=== PATIENT | male | born 1950 | race Caucasian/White ===

== ENCOUNTER 2019-12-22 10:22 | Outpatient (CLI) | payer BC, SELFPAY ==
--- NOTE | 2019-12-22 | US_ITS ---
WS: [id number] ULTRASOUND CAROTID INDICATION: Carotid bruit TECHNIQUE: Ultrasound examination both carotid arteries with Doppler. FINDINGS: RIGHT: Right common carotid artery is patent. Mild intimal hyperplasia. Mild calcified atheromatous d isease right ICA. Less than 50% ICA stenosis. Right ECA is patent. LEFT: Left common carotid artery is patent. Mild intimal hyperplasia left common carotid artery. Less than 50% stenosis left ICA. Mild calcified atheromatous plaque left proximal ICA. Left ECA is patent . Antegrade flow both vertebral arteries. US/ROR carotid duplex BI IMPRESSION: Less than 50% ICA stenosis bilaterally.
== END 2019-12-22 10:23 | disposition home or self-care (01) ==
LOC: RADOUTREAD 11:55
PROVIDERS: Family Provider Family Medicine; PCP Family Medicine; Visit Provider Family Medicine
DX: Z76.89 Persons encountering health services in other specified circumstances (principal)

== ENCOUNTER 2020-12-06 17:20 | Emergency (ER) | payer BC, SELFPAY ==
[2020-12-06 17:37] VITALS: BP 115/77; PULSE 94; RESP 18; TEMP 37.3; O2SAT 96; BMI 23.0
[2020-12-06 20:21] VITALS: BP 140/77; PULSE 83; RESP 17; O2SAT 97
--- NOTE | 2020-12-06 20:21 | CTR_ITS ---
PROCEDURE INFORMATION: Exam: CT Angiography Chest With Contrast Exam date and time: 12/06/2020 11:11 PM Age: 70 years old Clinical indication: Dyspnea; Additional info: R/O pe TECHNIQUE: Imaging protocol: Computed tomographic angiography of the chest with contrast. 3D rendering (Not supervised by radiologist): MIP and/or 3D reconstructed images were created by the technologist. Total images: 936 Radiation optimization: All CT scans at this facility use at least one of these dose optimization techniques: automated exposure control; mA and/or kV adjustment per patient size (includes targeted exams where dose is matched to clinical indication); or iterative reconstruction. Contrast material: OMNI 350; Contrast volume: 95 ml; Contrast route: INTRAVENOUS (IV); COMPARISON: No relevant prior studies available. RADIATION DOSE METRICS: Total DLP (mGy-cm): 615.59 FINDINGS: Pulmonary arteries: No visible evidence of pulmonary embolism/pulmonary arterial thrombus. Aorta: The thoracic aorta is nonaneurysmal. No visible intimal flap or dissection. Mild arterial sclerotic disease. Lungs: Patchy, predominantly peripheral, ground-glass interstitial lung disease opacification as well as evidence of early consolidation in the posterior basal segments of the bilateral lower lobes consistent with active pneumonitis/pneumonia. Consideration might be given to Covid-19 pneumonitis/pneumonia. Rare bullous/bleb. Evidence of mild COPD/chronic bronchitis. Evidence of antecedent granulomatous disease. Pleural spaces: Unremarkable. No pneumothorax. No pleural effusion. Heart: Unremarkable. No cardiomegaly. No pericardial effusion. No visible coronary artery disease. Lymph nodes: Moderately prominent mediastinal and hilar lymph nodes believed most likely reactive in nature. Kidneys and ureters: Bilateral renal simple cortical cysts the largest off the superior pole left kidney maximum diameter 7.7 cm. No follow-up recommended. Bones/joints: No visible evidence of active or acute osseous pathology. Soft tissues: Unremarkable. Other findings: . CT/CT angio chest PE protcl [id number] IMPRESSION: 1. No visible evidence of pulmonary embolism/pulmonary arterial thrombus. 2. Bilateral pneumonitis/pneumonia. Consideration might be given to Covid-19 pneumonitis/pneumonia. 3. Moderately prominent mediastinal hilar lymph nodes believed most likely reactive in nature. COMMENTS: Consistent with the [employer]'s Incidental Findings Committee white paper (J Am Alethea Radiol 2018): Any incidental renal lesion less than 1 cm or classified as too small to characterize, or any incidental cystic renal lesion characterized as simple-appearing, is likely benign. No follow-up imaging is recommended for these lesions per consensus recommendations based on imaging criteria. Radiation Dose CTDIVOL = (mGy): DLP = 615.59 (mGy-cm)
--- NOTE | 2020-12-06 20:23 | ECG_ITS ---
[facility] [place] [facility] Date: 2020-12-06 Pat Name: Nathaniel Lainez Department: Room: Gender: Male General Practice: : 1950 Requested By: Scott Smith Order Number: [id number] Mile MD: ESPERANZA CARRINGTON Measurements Intervals [place] Rate: 84 P: 48 ME: 156 QRS: 21 QRSD: 89 T: 19 QT: 361 QTc: 429 Interpretive Statements SINUS RHYTHM No previous ECG available for comparison Electronically Signed On 12-07-2020 18:02:39 [employer]YWALL PROFESSIONAL by ESPERANZA CARRINGTON [email or web address]
--- NOTE | 2020-12-06 21:06 | W.ED.COVID ---
HPI - COVID General: Chief Complaint: COVID symptoms Stated Complaint: DR MURRAY REF/SENT FOR CT/POSS BLOOD CLOT Time Seen by Provider: 12/06/20 20:21 Triage information: Has fever, cough or shortness of breath. Exposure to COVID + person last 14 days History of Present Illness: HPI Narrative: The patient is a 70-year-old male who has been suffering from COVID-19 for several days. He swabbed positive last Sunday and has not seen a physician about this. He has not received antibiotics or steroids. He complains of continued weakness. MD complaint: known COVID positive COVID 19 common symptoms: positive dyspnea; negative non-productive cough, productive cough, fatigue, headache(s), throat pain, nasal congestion or diarrhea COVID 19 other sytmptoms: negative chest pain or confusion COVID Results: No Data to Display Review of Systems General: Reports: 10 or more systems reviewed and unremarkable except in HPI and below Const: Denies: fatigue Eyes: Denies: change in vision, blurry vision or eye redness ENMT: Denies: throat pain, swelling of lips/tongue, ear or mastoid pain or nasal congestion Card: Denies: chest pain, palpitations, irregular heart rhythm, edema, dyspnea on exertion or orthopnea Resp: Reports: dyspnea; Denies: productive cough or non-productive cough GI: Denies: abdominal pain, diarrhea or GI cramping : Denies: flank pain, urinary frequency or urinary urgency Musc: Denies: neck pain, back pain, extremity pain, joint pain, joint redness, limited range of motion or muscle weakness Skin/Breast: Denies: rash, pruritus, erythema, skin pain or skin tenderness Neuro: Denies: headache(s), numbness in extremities, weakness in extremities, sensory changes, difficulty walking, dizziness, confusion or Slurred speech present Psych: Denies: anxiety or depression Endo: Denies: polyuria All/Imm: Denies: urticaria, throat swelling or tongue swelling PFSH ED PFSH: Medical History (Updated 12/06/20 @ 23:55 by Scott Smith MD) History of hypertension Hx of supraventricular tachycardia Physical Exam Const: COMMON NORMALS: no acute distress, average body habitus, patient oriented x3, no limitations, healthy appearing, alert and well nourished GENERAL APPEARANCE: cooperative, comfortable, well kempt and well developed ORIENTATION/CONSCIOUSNESS: Yes awake, Yes oriented to person, Yes oriented to place and Yes oriented to time HENMT: COMMON NORMALS: normocephalic, external ears normal and Normal external nose present HEAD & SCALP: normal to inspection and normocephalic NOSE: Normal external nose present EXTERNAL EAR: Yes external ears normal MOUTH: Normal oral and palatal mucosa present THROAT: posterior oropharynx normal Eye: COMMON NORMALS: Equal, round and reactive pupils present and EOMs intact bilaterally GENERAL EYE: appearance normal, both eyes and all related structures PUPIL: Yes Equal, round and reactive pupils present Neck/C-Spine: COMMON NORMALS: full ROM, no lymphadenopathy, no meningeal signs and no JVD GENERAL: Yes normal visual inspection Lymph: LYMPHATIC: no lymphadenopathy noted Chest: COMMONS NORMALS: normal inspection of the chest and normal palpation of entire chest wall Resp: COMMON NORMALS: normal respiratory effort, No retractions, No use of accessory muscles, clear to auscultation bilaterally and percussion normal EFFORT & INSPECTION: Yes able to speak in complete sentences AUSCULTATION: clear to auscultation bilaterally PERCUSSION: percussion normal Cardio: COMMON NORMALS: no JVD, regular rate, regular rhythm, S1 normal heart sound present, S2 normal heart sound present and Peripheral pulses 2+ throughout RATE: regular rate RHYTHM: regular rhythm HEART SOUNDS: S1 normal heart sound present and S2 normal heart sound present PERIPHERAL PULSES: Peripheral pulses 2+ throughout GI: COMMON NORMALS: Normal to inspection, nondistended, normoactive bowel sounds present, Soft to palpation, non-tender and no masses INSPECTION: Yes normal to inspection PALPATION: Yes Soft to palpation : COMMON NORMALS: Yes no CVA tenderness BLADDER/KIDNEY EXAM: Yes no CVA tenderness Back/Pelvis: COMMON NORMALS: no CVA tenderness, thoracic and lumbar spine normal to inspection, no thoracic nor lumbar tenderness and thoraco-lumbar ROM normal Extremity: COMMON NORMALS: normal to inspection, full ROM, capillary refill normal, no joint enlargement and no pedal edema GENERAL: Yes normal exam except as noted Neuro: COMMON NORMALS: patient oriented x3, CN's II-XII intact bilaterally, moves all extremities, no focal motor deficits, no sensory deficits noted and gait normal SENSORIUM/ORIENTATION: Yes alert, Yes oriented to person, Yes oriented to place and Yes oriented to time MENINGEAL SIGNS: Yes no meningeal signs Psych: COMMON NORMALS: mental status grossly normal, Normal thought process present, cooperative, normal affect and speech normal APPEARANCE: Yes well kempt ATTITUDE: Yes calm SPEECH: Yes normal speech THOUGHT PROCESS: Normal thought process present Skin: COMMON NORMALS: no rashes or lesions noted GENERAL SKIN EXAM: no rashes or lesions noted Course Vital Signs: Vital signs: Vital Signs Temperature 99.1 F 12/06/20 17:37 Pulse Rate 86 12/06/20 23:30 Respiratory Rate 17 12/06/20 23:30 Blood Pressure 143/83 12/06/20 23:30 Pulse Oximetry 97 12/06/20 23:30 MDM - COVID MDM Narrative: Medical decision making narrative: Patient came in with COVID-19 for the past 8 days. He is also developed a mild associated pneumonia. He will be given antibiotics, Medrol Dosepak, and albuterol inhaler to help with his symptoms at home. Also he qualified for home oxygen and will be given that prior to discharge. Return to the ER at anytime with worsening symptoms otherwise follow-up with your primary care physician in a few days to monitor symptoms. Lab Data: Labs: Lab Results 12/06/20 12/06/20 12/06/20 Range/Units 21:28 21:28 21:28 WBC 3.2 L (4.0-10.0) 10^3/ uL RBC 4.78 (4.1-5.3) 10^6/u L Hgb 13.8 (11.7-16.6) g/dL Hct 41.6 L (42.0-52.0) % MCV 87.0 (80-94) fL MCH 28.9 (28.0-34.0) pg MCHC 33.2 (30.0-36.0) g/dL RDW 12.7 (12.1-15.1) % Plt Count 152 (130-400) 10^3/c mm MPV 10.7 H (7.4-10.4) fL Neut % (Auto) 63.4 % Lymph % (Auto) 27.0 % [place] % (Auto) 9.0 % Eos % (Auto) 0.3 % Baso % (Auto) 0.3 % Neut # (Auto) 2.04 (1.8-7.7) 10^3/u L Lymph # (Auto) 0.9 (0.8-4.8) 10^3/u L [place] # (Auto) 0.3 (0.2-0.9) 10^3/u L Eos # (Auto) 0.0 (0.0-0.8) 10^3/u L Baso # (Auto) 0.0 (0.0-0.1) 10^3/u L Nucleated RBC % (a uto) 0 % Nucleated RBCs # 0.0 /100WBC Sodium 137 (136-145) mmol/L Potassium 3.7 (3.5-5.1) mmol/L Chloride 97 L (98-107) mmol/L Carbon Dioxide 31 H (22-29) mmol/L Anion Gap 12.7 (5-19) BUN 26 H (8-23) mg/dL Creatinine 1.2 (0.7-1.2) mg/dL GFR Calculation 60.2 L (90-130) mL/min Glucose 102 (65-115) mg/dL Calculated Osmolal ity 289 (285-295) mOsm/k g Lactate 0.7 (0.5-2.2) mmol/L Calcium 8.4 L (8.5-10.5) mg/dL Total Bilirubin 0.3 (0.15-1.2) mg/dL AST 25 (0-40) U/L ALT 13 (0-41) U/L Alkaline Phosphata se 62 (40-130) IU/L Troponin T Baselin e (0-15) ng/L NT-Pro-B Natriuret Pep 14 (0-125) pg/mL Total Protein 6.5 L (6.6-8.7) g/dL Albumin 3.8 (3.5-5.2) g/dL Globulin 2.7 (1.3-4.6) g/dL Urine Color (Yellow) Urine Appearance (CLEAR) Urine pH (5-7) Ur Specific Gravit y (1.005-1.030) Urine Protein (Negative) Urine Glucose (UA) (Normal) Urine Ketones (Negative) Urine Blood (Negative) Urine Nitrate (Negative) Urine Bilirubin (Negative) Urine Urobilinogen (Negative) mg/dL Ur Leukocyte Emma ase (Negative) Urine RBC (0-2) /hpf Urine WBC (0-5) /hpf Ur Squamous Epith Cells (0-5) /hpf Amorphous Sediment Urine Bacteria (NONE) /hpf 12/06/20 12/06/20 Range/Units 21:28 21:28 WBC (4.0-10.0) 10^3/ uL RBC (4.1-5.3) 10^6/u L Hgb (11.7-16.6) g/dL Hct (42.0-52.0) % MCV (80-94) fL MCH (28.0-34.0) pg MCHC (30.0-36.0) g/dL RDW (12.1-15.1) % Plt Count (130-400) 10^3/c mm MPV (7.4-10.4) fL Neut % (Auto) % Lymph % (Auto) % [place] % (Auto) % Eos % (Auto) % Baso % (Auto) % Neut # (Auto) (1.8-7.7) 10^3/u L Lymph # (Auto) (0.8-4.8) 10^3/u L [place] # (Auto) (0.2-0.9) 10^3/u L Eos # (Auto) (0.0-0.8) 10^3/u L Baso # (Auto) (0.0-0.1) 10^3/u L Nucleated RBC % (a uto) % Nucleated RBCs # /100WBC Sodium (136-145) mmol/L Potassium (3.5-5.1) mmol/L Chloride (98-107) mmol/L Carbon Dioxide (22-29) mmol/L Anion Gap (5-19) BUN (8-23) mg/dL Creatinine (0.7-1.2) mg/dL GFR Calculation (90-130) mL/min Glucose (65-115) mg/dL Calculated Osmolal ity (285-295) mOsm/k g Lactate (0.5-2.2) mmol/L Calcium (8.5-10.5) mg/dL Total Bilirubin (0.15-1.2) mg/dL AST (0-40) U/L ALT (0-41) U/L Alkaline Phosphata se (40-130) IU/L Troponin T Baselin e 12 (0-15) ng/L NT-Pro-B Natriuret Pep (0-125) pg/mL Total Protein (6.6-8.7) g/dL Albumin (3.5-5.2) g/dL Globulin (1.3-4.6) g/dL Urine Color Yellow (Yellow) Urine Appearance Clear (CLEAR) Urine pH 5.0 (5-7) Ur Specific Gravit y 1.020 (1.005-1.030) Urine Protein Neg (Negative) Urine Glucose (UA) Norm (Normal) Urine Ketones Negative (Negative) Urine Blood 2+ H (Negative) Urine Nitrate Negative (Negative) Urine Bilirubin Neg (Negative) Urine Urobilinogen Norm (Negative) mg/dL Ur Leukocyte Emma ase Negative (Negative) Urine RBC 0-4 H (0-2) /hpf Urine WBC None (0-5) /hpf Ur Squamous Epith Cells None (0-5) /hpf Amorphous Sediment Not Reportable Urine Bacteria Trace (NONE) /hpf COVID Results: No Data to Display Discharge Plan Discharge Patient Disposition: Home Clinical Impression: COVID-19 Condition: Stable Prescriptions: New Medrol (Abdifatah) 4 mg tablets,dose pack See Rx Instructions .ROUTE .COMPLEX Qty: 21 RF: 0 albuterol sulfate 90 mcg/actuation HFA aerosol inhaler 2 inh inhalation Q6H PRN (Reason: shortness of breath or wheezing) 90 Days RF: 0 levofloxacin 750 mg tablet 750 mg PO DAILY 14 Days RF: 0 No Action simvastatin 5 mg tablet 5 mg PO DAILY@1000 RF: 0 magnesium 200 mg tablet 400 mg PO DAILY@1000 RF: 0 fexofenadine [[place] Allergy] 180 mg tablet 180 mg PO DAILY@1000 RF: 0 omeprazole 20 mg capsule,delayed release(DR/EC) 20 mg PO DAILY@1000 RF: 0 propranolol 10 mg tablet 10 mg PO DAILY PRN (Reason: for HR > 140) RF: 0 Vitamin C 1,000 mg Tablet 1,000 mg PO DAILY@1000 RF: 0 aspirin 325 mg Tablet 325 mg PO DAILY@1000 RF: 0 Advil 200 mg Tablet 200 - 400 mg PO Q6H PRN (Reason: Pain) RF: 0 Vitamin D3 1 tab PO DAILY@1000 RF: 0 valsartan-hydrochlorothiazide 160-12.5 mg tablet 1 tab PO DAILY@1000 RF: 0 Discharge Orders: Discharge ED (Routine); Ordered 12/06/20 Ordered By: Scott Smith Other Ambulatory Orders: DME: Oxygen (Order) Location: None Selected Ordered By: Ricardo Frances Referrals: Hussain Murray MD [Primary Care Provider] - Discharge Diet: Advance as tolerated Discharge Activity: Resume usual activity Patient Instructions: Bacterial Pneumonia (ED) Activity Restrictions/Additional Instructions: You are suffering from COVID-19 and have also developed a mild pneumonia. Please take the antibiotics, steroids, and use the albuterol inhaler to help with shortness of breath. You may return to the ER at any time if your symptoms worsen. Follow-up with your primary care physician in a few days to monitor improvement of your symptoms. Please continue to quarantine at home Coding Level of Care Code ED Chemical Tester for Jordan Palm
[2020-12-06] MEDS: dexamethasone 10 mg/mL INJ IVP (21:41)
[2020-12-06] MEDS: sodium chloride 0.9% 1,000 ML 999 ML IV (21:41)
[2020-12-06] MEDS: ketorolac 30 mg/mL INJ 15 MG IVP (21:41)
[2020-12-06 22:00] LABS: Basophils % 0.3 %; Eosinophils % 0.3 %; Hematocrit 41.6 % (42.0-52.0); Hemoglobin 13.8 g/dL (11.7-16.6); Lymphocytes # 0.9 10^3/uL (0.8-4.8); Mean Corpuscular HGB Conc 33.2 g/dL (30.0-36.0); Mean Corpuscular Hemoglobin 28.9 pg (28.0-34.0); Mean Platelet Volume 10.7 fL (7.4-10.4); Monocytes # 0.3 10^3/uL (0.2-0.9); Neutrophils # 2.04 10^3/uL (1.8-7.7); Neutrophils % 63.4 %; Nucleated Red Blood Cells % 0 %; Platelet Count 152 10^3/cmm (130-400); Red Blood Count 4.78 10^6/uL (4.1-5.3); Red Cell Distribution Width 12.7 % (12.1-15.1); White Blood Count 3.2 10^3/uL (4.0-10.0)
[2020-12-06 22:03] VITALS: O2SAT 94
[2020-12-06 22:18] LABS: Add Urine Culture? No; Add Urine Microscopic? YES; Bacteria Urine TRACE /hpf; Bilirubin Urine Neg (Negative); Blood Urine 2+ (Negative); Glucose Urine UA Norm (Normal); Ketones Urine Negative (Negative); Leukocyte Esterase Urine Negative (Negative); Nitrate Urine Negative (Negative); Protein Urine Neg (Negative); RBC Urine 0-4 /hpf (0-2); Urine Appearance Clear (CLEAR); Urine Color Yellow (Yellow); Urobilinogen Urine Norm (Negative)
[2020-12-06 22:19] LABS: Lactate (Lactic Acid level) 0.7 mmol/L (0.5-2.2)
[2020-12-06 22:20] LABS: Troponin(5th) Baseline 12 ng/L (0-15)
[2020-12-06 22:28] LABS: Alanine Aminotransferase 13 U/L (0-41); Albumin Level 3.8 g/dL (3.5-5.2); Alkaline Phosphatase 62 IU/L (40-130); Anion Gap 12.7 (5-19); Aspartate Amino Transferase 25 U/L (0-40); Blood Urea Nitrogen 26 mg/dL (8-23); Calcium 8.4 mg/dL (8.5-10.5); Carbon Dioxide 31 mmol/L (22-29); Chloride 97 mmol/L (98-107); Creatinine Clr Calc Pharmacy 64.5037; Globulin 2.7 g/dL (1.3-4.6); Glomerular Filtration Rate 60.2 mL/min (90-130); Glucose 102 mg/dL (65-115); NT Pro B Type Natriuretic Pept 14 pg/mL (0-125); Osmolality Calculated 289 mOsm/kg (285-295); Potassium 3.7 mmol/L (3.5-5.1); Sodium 137 mmol/L (136-145); Total Bilirubin 0.3 mg/dL (0.15-1.2); Total Protein 6.5 g/dL (6.6-8.7)
[2020-12-06 23:00] VITALS: BP 117/61; PULSE 86; RESP 17; O2SAT 95
[2020-12-06] MEDS: iohexol 350 mg/mL 100 mL Btl IV (23:16)
[2020-12-06 23:30] VITALS: BP 143/83; PULSE 86; RESP 17; O2SAT 97
[2020-12-07 00:55] VITALS: BP 114/72; PULSE 81; RESP 17; O2SAT 92
[2020-12-07] MEDS: levoFLOXacin 750 mg Tablet PO (00:59)
[2020-12-07 01:06] VITALS: BP 119/68; PULSE 68; RESP 17; TEMP 37.2; O2SAT 93
[2020-12-07 01:17] VITALS: BP 119/68; PULSE 68; RESP 17; TEMP 37.2; O2SAT 93
== END 2020-12-07 01:17 | disposition home or self-care (01) ==
PROVIDERS: Emergency Provider Family Medicine; PCP Family Medicine
DX: U07.1 COVID-19 (principal); Z79.82 Long term (current) use of aspirin; I10 Essential (primary) hypertension
CPT/HCPCS: 12345; 71275; 80053; 81001; 83605; 83880; 84484; 85025; 93005; 96361; 96374; 96375; 99283; 99284; J1100; J1885; J7030; Q9967

== ENCOUNTER 2021-03-29 08:32 | Outpatient (CLI) | payer BC, SELFPAY ==
--- NOTE | 2021-03-29 08:41 | USCV_ITS ---
Nathaniel Lainez Age: 70 Gender: M : 1950 Exam Date: 03/29/2021 08:50 Ordering Phys: Hussain Kitchen MD Technologist: Soo Kay [place]am Location[place] [facility] [place] Indication: S/P COVID NOV 2020 BP: 139 / 81 HR: 70 Rhythm: Sinus Technical Quality: Adequate MEASUREMENTS (Male / Female) Normal Values 2D ECHO LV Diastolic Diameter PLAX 4.7 cm 4.2 - 5.9 / 3.9 - 5.3 cm LV Systolic Diameter PLAX 2.7 cm IVS Diastolic Thickness 0.9 cm 0.6 - 1.0 / 0.6 - 0.9 cm IVS Systolic Thickness 1.7 cm LVPW Diastolic Thickness 0.9 cm 0.6 - 1.0 / 0.6 - 0.9 cm LVPW Systolic Thickness 1.7 cm LVOT Diameter 2.0 cm LV Ejection Fraction 2D Teich 74.6 % LV Ejection Fraction MOD 2C 61.6 % LV Ejection Fraction 2C AL 62.6 % LA Diameter 2.7 cm LA Width 3.2 cm LA Height 3.7 cm RA Width 3.1 cm RA Height 4.7 cm Aorta at Sinotubular Diameter 3.5 cm M-MODE LV Diastolic Diameter MM 5.6 cm 4.2 - 5.9 / 3.9 - 5.3 cm LV Systolic Diameter MM 3.9 cm LV Ejection Fraction MM Teich 58.9 % IVS Diastolic Thickness MM 1.1 cm 0.6 - 1.0 / 0.6 - 0.9 cm IVS Systolic Thickness MM 2.0 cm LVPW Diastolic Thickness MM 1.1 cm 0.6 - 1.0 / 0.6 - 0.9 cm LVPW Systolic Thickness MM 1.8 cm Aortic Annulus Diameter 2.5 cm LA Ao Ratio MM 1.1 MV E Point Septal Separation 0.3 cm DOPPLER AV Peak Velocity 111.0 cm/s LVOT Peak Velocity 72.0 cm/s AV Area Cont Eq vti 2.4 cm squared AV Area Cont Eq pk 2.0 cm squared MV Area PHT 3.9 cm squared Mitral E to A Ratio 1.1 MV E' Velocity 47.0 cm/s Mitral E to MV E' Ratio 8.0 Mitral E to LV E' Lateral Ratio 8.0 Mitral E to LV E' Septal Ratio 8.0 TR Peak Velocity 241.0 cm/s TR Peak Gradient 23.2 mmHg Right Atrial Pressure 3.0 mmHg Pulmonary Artery Systolic Pressu 26.2 mmHg PV Peak Velocity 116.0 cm/s RV Acceleration Time 0.1 s RV Ejection Time 0.3 s RV AcT/ET 0.4 FINDINGS Left Ventricle Normal left ventricular cavity size. Normal left ventricular systolic function. No regional wall motion abnormalities. Left ventricular ejection fraction is estimated at 60 %. Grade I/IV diastolic dysfunction (abnormal relaxation filling pattern), normal to mildly elevated filling pressures. Right Ventricle The right ventricle is normal in size and function. Right Atrium The right atrium is normal in size. Left Atrium The left atrium is normal in size. Mitral Valve Mildly thickened mitral valve. No mitral valve stenosis. Mild mitral valve regurgitation. Aortic Valve Mild aortic valve calcification. No aortic valve stenosis. Trace aortic valve regurgitation. Tricuspid Valve Structurally normal tricuspid valve without significant stenosis or regurgitation. Pulmonary artery systolic pressure is normal. Pulmonic Valve Structurally normal pulmonic valve without significant stenosis. There is no pulmonic regurgitation. Pericardium Normal pericardium without effusion. Aorta Normal ascending aorta dimension. CONCLUSIONS 1-Normal left ventricular cavity size. Normal left ventricular systolic function. No regional wall motion abnormalities. Left ventricular ejection fraction is estimated at 60 %. Grade I/IV diastolic dysfunction (abnormal relaxation filling pattern), normal to mildly elevated filling pressures. 2-Mild aortic valve calcification. No aortic valve stenosis. Trace aortic valve regurgitation. 3-Mildly thickened mitral valve. No mitral valve stenosis. Mild mitral valve regurgitation. 4-There is no pericardial effusion. 5-Pulmonary artery systolic pressure is within normal limits. 6-Right atrial pressure is around 5 mm of mercury. 7-No significant change since the prior echocardiogram study of 10/17/2018. Kushal Parada MD (Electronically Signed) Final Date: 08 April 2021 09:30 S
== END 2021-03-29 08:33 | disposition home or self-care (01) ==
LOC: RAD 08:40
PROVIDERS: PCP Family Medicine; Visit Provider Family Medicine
DX: U07.1 COVID-19 (principal); J12.82 Pneumonia due to coronavirus disease 2019; R06.00 Dyspnea, unspecified; I70.0 Atherosclerosis of aorta; I08.0 Rheumatic disorders of both mitral and aortic valves
CPT/HCPCS: 93306

== ENCOUNTER → 2022-03-12 13:48 | Outpatient (BNVA) | payer BC, SELFPAY | PROVIDERS: PCP Family Medicine; Visit Provider Nurse Practitioner | DX: J02.9 Acute pharyngitis, unspecified (principal) | CPT/HCPCS: 87880 ==

== ENCOUNTER 2023-03-21 08:02 | Outpatient (CLI) | payer MEDICARE, BC, SELFPAY ==
--- NOTE | 2023-03-21 | XR_ITS ---
WS: [id number] Left ankle, 3 views, 03/21/2023 Clinical Data: PAIN IN LT ANKLE AND JOINTS OF LT FOOT Comparison: None. Findings: No fractures or dislocations are seen. The ankle mortise is normal. The talus and calcaneus are unrem arkable. There is minimal swelling over the lateral malleolus. XR/XR ankle LT min 3V* [id number] Impression: 1. Negative for fracture or dislocation of the left ankle. 2. Minimal soft tissue swelling over lateral malleolus.
== END 2023-03-23 14:10 | disposition home or self-care (01) ==
PROVIDERS: PCP Family Medicine; Visit Provider Nurse Practitioner Family
DX: M25.572 Pain in left ankle and joints of left foot (principal); M25.472 Effusion, left ankle
CPT/HCPCS: 73610

== ENCOUNTER 2025-09-24 11:40 | Inpatient (IN) | payer MEDICARE, BC, SELFPAY ==
[2025-09-24] VITALS (10 sets, daily range): BP systolic 115–153; BP diastolic 75–97; PULSE 61–86; RESP 16–20; TEMP 36.3–36.8; O2SAT 91–98; BMI 25.0
--- NOTE | 2025-09-24 11:43 | XR_ITS ---
WS: [id number] XR hip LT 2-3V wo/w pel* [id number] REASON FOR EXAM: fall FINDINGS: 3 part intertrochanteric fracture which involves the lesser trochanter which is minimally displaced. Acetabulum and pubic rami are intact. XR/XR hip LT 2-3V wo/w pel* [id number] IMPRESSION: Left intertrochanteric fracture as above.
--- NOTE | 2025-09-24 11:48 | PC.NURSE ---
primary nurse to get temp on patient.
--- NOTE | 2025-09-24 11:50 | W.ED.FALL ---
HPI - Fall General: Chief Complaint: Fall Stated Complaint: fall Source: patient and EMS Mode of arrival: EMS Limitations: no limitations History of Present Illness: 75-year-old male states he is on a ladder in his barn fell roughly 5 to 6 feet onto concrete onto his left hip. States he has severe left hip pain he rates a 10 out of 10. He denies any other injuries from his fall denies hitting his head denies any loss of consciousness. Pain is much worse with movement not able to bear weight Related Data Home Medications ?Medication ?Instructions ?Recorded ?Confirmed fexofenadine 180 mg tablet 180 mg PO DAILY@99907/02/20 03/12/22 ([place] Allergy) magnesium 200 mg tablet 400 mg PO DAILY@99907/02/20 03/12/22 omeprazole 20 mg capsule,delayed 20 mg PO DAILY@99907/02/20 03/12/22 release propranolol 10 mg tablet 10 mg PO DAILY PRN for HR > 140 07/02/20 03/12/22 simvastatin 5 mg tablet 5 mg PO DAILY@99907/02/20 03/12/22 Vitamin D3 1 tab PO DAILY@99912/06/20 03/12/22 aspirin 325 mg tablet 325 mg PO DAILY@99912/06/20 03/12/22 ibuprofen 200 mg tablet (Advil) 200 - 400 mg PO Q6H PRN Pain 12/06/20 03/12/22 Previous Rx's ?Medication ?Instructions ?Recorded valsartan 320 1 tab PO DAILY #90 tabs 08/12/21 mg-hydrochlorothiazide 12.5 mg tablet amoxicillin 875 mg-potassium 1 tab PO BID 7 days #14 tabs 03/12/22 clavulanate 125 mg tablet Allergies Allergy/AdvReac Type Severity Reaction Status Date / Time codeine Allergy unknown Verified 03/12/22 13:25 Review of Systems Musc: Reports: extremity pain PFSH ED PFSH: Medical History Hx of supraventricular tachycardia History of hypertension Social History Smoking and tobacco/nicotine status: former use of tobacco/nicotine Physical Exam Const: COMMON NORMALS: no acute distress, patient oriented x3 and healthy appearing HENMT: COMMON NORMALS: normocephalic and atraumatic HEAD & SCALP: normocephalic and atraumatic Neck/C-Spine: COMMON NORMALS: full ROM and supple Chest: COMMONS NORMALS: normal inspection of the chest Resp: COMMON NORMALS: normal respiratory effort, No retractions, No use of accessory muscles and clear to auscultation bilaterally AUSCULTATION: clear to auscultation bilaterally Cardio: COMMON NORMALS: regular rate, regular rhythm and No murmurs present (Cardio) RATE: regular rate RHYTHM: regular rhythm GI: COMMON NORMALS: Normal to inspection, nondistended, normoactive bowel sounds present, Soft to palpation, non-tender and no masses PALPATION: Yes Soft to palpation Extremity: NARRATIVE EXTREMITY EXAM: Tenderness noted left hip Neuro: COMMON NORMALS: patient oriented x3, moves all extremities and no focal motor deficits Psych: COMMON NORMALS: mental status grossly normal, Normal thought process present and cooperative THOUGHT PROCESS: Normal thought process present Skin: COMMON NORMALS: no rashes or lesions noted and no wounds GENERAL SKIN EXAM: no rashes or lesions noted Course Vital Signs: Vital signs: Vital Signs Temperature 98.3 F 09/24/25 11:54 Pulse Rate 61 09/24/25 11:43 Respiratory Rate 20 H 09/24/25 11:43 Blood Pressure 146/92 09/24/25 11:43 Pulse Oximetry 98 09/24/25 11:43 Oxygen Delivery Me thod Room Air 09/24/25 11:43 MDM - Fall Medical Decision Making 75-year-old male presents after a fall. Patient's x-ray does show a left hip fracture has no other injuries noted denies hitting his head no back or neck pain. I did speak to hospitalist Dr. SATHISH BO who is admitting also spoke to orthopedist Dr. Gómez who is consulted. Patient is given Dilaudid here his pain is much improved. Medical Records I reviewed the patient's medical records. Lab Data I reviewed the patient's lab results. 09/24/25 11:45 09/24/25 11:45 Radiology Impressions Hip/Pelvis X-Ray 09/24/25 11:43 IMPRESSION: Left intertrochanteric fracture as above. Chest X-Ray 09/24/25 12:09 IMPRESSION: No acute lung abnormality. Presumed chronic compression deformity of T9. Pelvis X-Ray 09/24/25 12:13 IMPRESSION: Left intertrochanteric fracture. Laboratory Results WBC 7.65 10^3/uL (3.29-11.43) 09/24/25 11:45 RBC 4.89 10^6/uL (3.85-5.65) 09/24/25 11:45 Hgb 14.50 g/dL (11.27-16.99) 09/24/25 11:45 Hct 44.3 % (37-53) 09/24/25 11:45 MCV 90.6 fl (82-101) 09/24/25 11:45 MCH 29.7 pg (27-33) 09/24/25 11:45 MCHC 32.7 g/dL (30-55) 09/24/25 11:45 RDW 12.9 % (12.1-15.1) 09/24/25 11:45 Plt Count 176 10^3/cmm (157-399) 09/24/25 11:45 MPV 10.8 fL (7.4-10.4) H 09/24/25 11:45 Neut % (Auto) 67.5 % 09/24/25 11:45 Lymph % (Auto) 21.4 % 09/24/25 11:45 [place] % (Auto) 6.4 % 09/24/25 11:45 Eos % (Auto) 3.1 % 09/24/25 11:45 Baso % (Auto) 0.9 % 09/24/25 11:45 Neut # (Auto) 5.16 10^3/uL (1.8-7.7) 09/24/25 11:45 Lymph # (Auto) 1.6 10^3/uL (0.8-4.8) 09/24/25 11:45 [place] # (Auto) 0.5 10^3/uL (0.2-0.9) 09/24/25 11:45 Eos # (Auto) 0.2 10^3/uL (0.0-0.8) 09/24/25 11:45 Baso # (Auto) 0.1 10^3/uL (0.0-0.1) 09/24/25 11:45 Nucleated RBC % (auto) 0 % 09/24/25 11:45 Nucleated RBCs # 0.0 /100WBC 09/24/25 11:45 PT 12.70 SECONDS (12.1-14.9) 09/24/25 11:45 INR 0.89 (0.8-1.2) 09/24/25 11:45 Sodium 142 mmol/L (136-145) 09/24/25 11:45 Potassium 4.3 mmol/L (3.5-5.1) 09/24/25 11:45 Chloride 107 mmol/L (98-107) 09/24/25 11:45 Carbon Dioxide 27 mmol/L (22-29) 09/24/25 11:45 Anion Gap 12.3 (5-19) 09/24/25 11:45 BUN 12 mg/dL (8-23) 09/24/25 11:45 Creatinine 0.9 mg/dL (0.7-1.2) 09/24/25 11:45 GFR Calculation Not Reportable 09/24/25 11:45 Glucose 120 mg/dL (65-115) H 09/24/25 11:45 Calculated Osmolality 295 mOsm/kg (285-295) 09/24/25 11:45 Calcium 8.8 mg/dL (8.5-10.5) 09/24/25 11:45 Total Bilirubin 0.6 mg/dL (0.15-1.2) 09/24/25 11:45 AST 22 U/L (0-40) 09/24/25 11:45 ALT 22 U/L (0-41) 09/24/25 11:45 Alkaline Phosphatase 78 U/L (40-130) 09/24/25 11:45 Total Protein 7.1 g/dL (6.6-8.7) 09/24/25 11:45 Albumin 4.2 g/dL (3.5-5.2) 09/24/25 11:45 Globulin 2.9 g/dL (1.3-4.6) 09/24/25 11:45 All radiology interpretation(s) finalized by discharge EKG Data EKG 1: I personally reviewed and interpreted this EKG as follows: EKG interpretation date: 09/24/25 EKG interpretation time: 12:28 Interpretation: nsr hr [address] elevation qrs 76 qtc 427 Discharge Plan Discharge Patient Disposition: Admitted As Inpatient Clinical Impression: Closed fracture of left hip Condition: Stable Coding Level of Care Code ED Legal Process Specialist for [facility] Palm
[2025-09-24] MEDS: ondansetron 2 mg/ML SDV 2 mL 4 MG IVP ×2 (11:52→15:30)
[2025-09-24] MEDS: HYDROmorphone 0.5 MG/0.5 ML INJ 1 MG IVP ×2 (11:52→15:30)
--- NOTE | 2025-09-24 12:09 | XR_ITS ---
WS: [id number] XR chest 1V portable [id number] REASON FOR EXAM: fall FINDINGS: The chest is unchanged compared to 09/16/2024. Minimal tortuosity of the thoracic aorta with mild calcification of the aortic arch. Normal heart size. Calcified granulomas disease in both hemithoraces. No acute pulmonary parenchymal or pleural abnormality. Moderate compression deformity of T9 which appears to have been present on the previous examination. XR/XR chest 1V portable [id number] IMPRESSION: No acute lung abnormality. Presumed chronic compression deformity of T9.
--- NOTE | 2025-09-24 12:09 | ECG_ITS ---
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 Measurements Intervals [place] Rate: 64 P: 51 OR: 160 QRS: 3 QRSD: 76 T: 16 QT: 418 QTc: 432 Interpretive Statements SINUS RHYTHM POSSIBLE LEFT ATRIAL ENLARGEMENT [-0.1mV P-WAVE IN V1/V2] Compared to ECG 12/06/2020 23:14:04 No significant changes Electronically Signed On 09-26-2025 14:13:24 [employer] by Tarik Abad M.D. [email or web address]
--- NOTE | 2025-09-24 12:13 | XR_ITS ---
WS: [id number] XR pelvis 1-2V* [id number] REASON FOR EXAM: FALL, PAIN FINDINGS: Examination is significantly rotated. Left intertrochanteric fracture as described on the left hip examination. Bilaterally the superior and inferior pubic rami appear intact without fracture. Sacrum appears intact as do the sacroiliac joints. Remainder of the bony pelvis demonstrates no acute abnormality. No abnormality of the right hip identified. XR/XR pelvis 1-2V* [id number] IMPRESSION: Left intertrochanteric fracture.
[2025-09-24 12:19] LABS: Hematocrit 44.3 % (37-53); Hemoglobin 14.50 g/dL (11.27-16.99); Mean Corpuscular HGB Conc 32.7 g/dL (30-55); Mean Corpuscular Hemoglobin 29.7 pg (27-33); Mean Corpuscular Volume 90.6 fl (82-101); Nucleated Red Blood Cells % 0 %; Platelet Count 176 10^3/cmm (157-399); Red Blood Count 4.89 10^6/uL (3.85-5.65); White Blood Count 7.65 10^3/uL (3.29-11.43)
[2025-09-24 12:24] LABS: INR 0.89 (0.8-1.2); Prothrombin Time 12.70 SECONDS (12.1-14.9)
[2025-09-24 12:31] LABS: Alanine Aminotransferase 22 U/L (0-41); Albumin Level 4.2 g/dL (3.5-5.2); Alkaline Phosphatase 78 U/L (40-130); Anion Gap 12.3 (5-19); Aspartate Amino Transferase 22 U/L (0-40); Blood Urea Nitrogen 12 mg/dL (8-23); Calcium 8.8 mg/dL (8.5-10.5); Carbon Dioxide 27 mmol/L (22-29); Chloride 107 mmol/L (98-107); Globulin 2.9 g/dL (1.3-4.6); Glucose 120 mg/dL (65-115); Osmolality Calculated 295 mOsm/kg (285-295); Potassium 4.3 mmol/L (3.5-5.1); Sodium 142 mmol/L (136-145); Total Protein 7.1 g/dL (6.6-8.7)
[2025-09-24 15:20] LABS: Magnesium 2.1 mg/dL (1.7-2.3); Thyroid Stimulating Hormone 4.37 uIU/mL (0.27-4.20)
--- OUTSIDE RECORDS SUMMARY | 2025-09-24 15:27 | XMS_ITS | Continuity of Care Document ---
Author Organization ALEKS Patterson [facility], L.LLaurentCLaurent, [facility] ([facility]) Address [address] [place] [address] Care Team Providers Care Service Line Layer Name Role Phone TIFF KITCHEN Primary Care Provider Assessment Encounter Date Assessment Date Assessment LastModified by Organization Details LastModified Time 07/31/2025 07/31/2025 The diagnostic criteria for alpha-gal syndrome require a combination of clinical and laboratory findings. The [employer] states that diagnosis is based on: (1) a history of consistent symptoms t ypically delayed (hours after ingestion) allergic reactions such as urticaria, anaphylaxis, or gastrointestinal symptoms (abdominal pain, diarrhea, nausea, vomiting) following consumption of mammalian meat or mammalian-derived products; (2) evidence of increased serum alpha-gal s pecific IgE antibodies; and (3) resolution or significant improvement of symptoms after strict avoidance of alpha-gal c ontaining foods for at least one month. Importantly, a positive alpha-gal IgE alone is insufficient for diagnosis, as sensitization can occur without clinical symptoms. Formal oral food challenge is not routinely recommended due to the delayed and variable nature of reactions in alpha-gal syndrome.[1] we discussed his test result. what we know from that and what we don't. the above is a summary from open evidence of what we discussed in detail but in layman's terms. we discussed avoiding tick bites, signs of more concerning allergies and plan of action. [email or web address] Not available 07/31/2025 08:51:22 Plan of Treatment Reminders Order Date Submit Date Provider Last Modified By Organization Details Last Modified Time Details Appointments None recorded. Lab None recorded. Referral None recorded. Procedures None recorded. Surgeries None recorded. Imaging None recorded. Medication Orders simvastatin 10 mg tablet 2024 025 [id number], [address], [place], [place], [id number], 09:13:56 Patient TargetsNo targets recorded. Patient InstructionsNo instructions recorded. Reason for Referral None Reported. Results Created Date Observation Date Name Description Value Unit Range Abnormal Flag Note LastModifiedBy Organization Detail LastModifiedTime 07/20/2007/20/2025 CBC WBC 5.7 x10 4.5-10 .5 Not Available [facility] [address] [facility] [address], [place], [address], 07/20/2025 09:55:00 07/20/2007/20/2025 CBC RBC 4.89 x10 4.30-5 .90 Not Available [facility] [address] [facility] [address], [place], [address], 07/20/2025 09:55:00 07/20/2007/20/2025 CBC HGB 14.5 g/dL 13.5-1 8.0 Not Available [facility] [address] [facility], [place], [address], 07/20/2025 09:55:00 07/20/2007/20/2025 CBC HCT 44.9 % 35.0-6 0.0 Not Available [facility] [address] [facility], [place], [address], 07/20/2025 09:55:00 07/20/2007/20/2025 CBC MCV 91.8 fL 80.0-9 9.9 Not Available [facility] [address] [facility], [place], [address], 07/20/2025 09:55:00 07/20/2007/20/2025 CBC MCH 29.7 pg 27.0-3 2.0 Not Available [facility] [address] [facility], [place], [address], 07/20/2025 09:55:00 07/20/2007/20/2025 CBC MCHC 32.3 g/dL 32.0-3 6.0 Not Available [facility] [address] [facility], [place], [address], 07/20/2025 09:55:00 07/20/2007/20/2025 CBC RDW 13.8 % 11.5-1 4.5 Not Available [facility] [address] [facility], [place], [address], 07/20/2025 09:55:00 07/20/2007/20/2025 CBC plt 181.0 x10 150.0- 451.0 Not Available [facility] [address] [facility], [place], [address], 07/20/2025 09:55:00 07/20/2007/20/2025 CBC lymphocytes % 31.9 % 20.0-5 0.0 Not Available [facility] [address] [facility], [place], [address], 07/20/2025 09:55:00 07/20/2007/20/2025 CBC granulcytes % 54.7 % 30.0-7 0.0 Not Available [facility] [address] [facility], [place], [address], 07/20/2025 09:55:00 07/20/2007/20/2025 CBC monocytes % 9.1 % 2.0-16 .0 Not Available [facility] [address] [facility], [place], [address], 07/20/2025 09:55:00 07/20/2007/20/2025 CBC granulcytes# 3.1 x10 Not Lisa ilable [facility] [address] [facility] [address], [place], [address], 07/20/2025 09:55:00 07/20/2007/20/2025 CBC lymphocytes # 1.8 x10 Not Available [facility] [address] [address], [place], [address], 07/20/2025 09:55:00 07/20/2007/20/2025 CBC monocytes # 0.5 x10 Not Avai lable [facility] [address] [address], [place], [address], 07/20/2025 09:55:00 07/20/2007/20/2025 HBA1C hemaglobin A1C 5.4 4.2-6. 5 Not Available [facility] [address] [address], [place], [address], 07/20/2025 10:08:08 07/20/2007/20/2025 CMP (MALE ) glucose 113.0 mg/dL 60.0-9 9.0 high Not Available [facility] [address] [address], [place], [address], 07/20/2025 10:29:03 07/20/2007/20/2025 CMP (MALE ) BUN (blood urea nitrogen) 15.0 mg/dL 10.0-2 6.0 Not Available [facility] [address] [address], [place], [address], 07/20/2025 10:29:03 07/20/2007/20/2025 CMP (MALE ) creatinine (serum) 0.9 mg/dL 0.4-1. 5 Not Available [facility] [address] [facility] [address] [address], [place], [address], 07/20/2025 10:29:03 07/20/20 25 07/20/2025 CMP (MALE ) BUN/creatini ne ratio 16.67 ratio Not Available [facility] [address] [facility], [place], [address], 07/20/2025 10:29:03 07/20/20 25 07/20/2025 CMP (MALE ) eGFR calculated 88.[address] [facility] [address] [facility], [place], [address], 07/20/2025 10:29:03 07/20/20 25 07/20/2025 CMP (MALE ) total protein 7.3 g/dL 6.0-8. 5 Not Available [facility] [address] [facility] 1, [place], [address], 07/20/2025 10:29:03 07/20/20 25 07/20/2025 CMP (MALE ) total bilirubin 1.3 mg/dL 0.2-1. 3 Not Available [facility] [address] [facility] [address], [place], [address], 07/20/2025 10:29:03 07/20/20 25 07/20/2025 CMP (MALE ) albumin 4.2 g/dL 3.5-5. 5 Not Available [facility] [address] [facility] 1, [place], [address], 07/20/2025 10:29:03 07/20/20 25 07/20/2025 CMP (MALE ) globulin 3.[address] [facility] [address] [facility], [place], [address], 07/20/2025 10:29:03 07/20/20 25 07/20/2025 CMP (MALE ) AST (SGOT) 30.0 U/L 0.0-46 .0 Not Available [facility] [address] [facility] 1, [place], [address], 07/20/2025 10:29:03 07/20/20 25 07/20/2025 CMP (MALE ) altv (SGPT) 20.0 U/L 13.0-6 9.0 normal Not Available [facility] [address] [facility], [place], [address], 07/20/2025 10:29:03 07/20/20 25 07/20/2025 CMP (MALE ) A/G ratio 1.4 ratio Not Available [facility] [address] [facility] 1, [place], [address], 07/20/2025 10:29:03 07/20/20 25 07/20/2025 CMP (MALE ) ALP phos 76.0 U/L 30.0-1 40.0 normal Not Available [facility] [address] [facility], [place], [address], 07/20/2025 10:29:03 07/20/2007/20/2025 CMP (MALE ) calcium 9.3 mg/dL 8.4-10 .5 Not Available [facility] [address] [facility], [place], [address], 07/20/2025 10:29:03 07/20/20 25 07/20/2025 CMP (MALE ) sodium 140.0 mmol/ L 136.0- 145.0 Not Available [facility] [address] [facility], [place], [address], 07/20/2025 10:29:03 07/20/20 25 07/20/2025 CMP (MALE ) potassium 4.3 mmol/ L 3.5-5. 1 Not Available [facility] [address] [facility], [place], [address], 07/20/2025 10:29:03 07/20/20 25 07/20/2025 CMP (MALE ) chloride 106.0 mmol/ L 98.0-1 10.0 normal Not Available [facility] [address] [facility] [address], [place], [address], 07/20/2025 10:29:03 07/20/20 25 07/20/2025 CMP (MALE ) C02 28.0 mmol/ L 22.0-3 1.0 Not Available [facility] [address] [facility], [place], [address], 07/20/2025 10:29:03 07/20/20 25 07/20/2025 CMP (MALE ) anion gap 6.0 calc Not Available [facility] [address] [facility] [address], [place], [address], 07/20/2025 10:29:03 07/20/20 25 07/20/2025 CMP (MALE ) osmolality 290.7 calc Not Available [facility] [address] [facility] [address], [place], [address], 07/20/2025 10:29:03 07/20/20 25 07/23/2025 ALPHA GAL PANEL beef (F27) IgE 1.00 kU/L high Not Available [facility] [address] [place], [address], 07/23/2025 16:57:53 07/20/20 25 07/23/2025 ALPHA GAL PANEL class 2 Not Available [facility] [address] [place], [address], 07/23/2025 16:57:53 07/20/20 25 07/23/2025 ALPHA GAL PANEL marquez (F88) IgE 0.34 kU/L high Not Available [facility] [address] [place], [address], 07/23/2025 16:57:53 07/20/20 25 07/23/2025 ALPHA GAL PANEL class 0/1 Not Available [facility] [address] [place], [address], 07/23/2025 16:57:53 07/20/2007/23/2025 ALPHA GAL PANEL pork (F26) IgE 0.12 kU/L high Not Available [address] [address] [place], [address], 07/23/2025 16:57:53 07/20/2007/23/2025 ALPHA GAL PANEL class 0/1 Not Available [address] [address] [place], [address], 07/23/2025 16:57:53 07/20/2007/23/2025 ALPHA GAL PANEL galactose alpha 1,3 galactose IgE 5.76 kU/L <0.10 high Resul ts above 0.1 kU/L indic ate an aller gen-s pecif ic IgE sensi tizat ion to galac tose- a-1,3 -gala ctose , and such patie nts are at risk for delay ed aller gic react ions follo wing beef, pork, or marquez consu mptio n. Circu latin g IgE antib odies may remai n undet ectab le despi te a convi ncing clini felton histo ry becau se these antib odies may be direc amanda towar ds aller gens revea led or alter ed durin g indus trial proce ssing , cooki ng, or diges tion and there fore do not exist in the origi nal food for which the patie nt is teste d. Somet imes indiv idual s diagn osed with chron ic urtic aria may devel op IgE antib odies direc amanda again st human thyro globu federico. Such antib odies may cross -reac t with the bovin e thyro globu federico used in Immun oCAP( R) Aller gen o215, alpha -Gal, leadi ng to a false -posi tive test resul t. A defin itive diagn osis shoul d be based on the evalu ation of both clini felton and labor atory findi ngs and not on any singl e diagn roseanna tejada. Addit ional infor viridiana hall can be found at http: //www .phad ia.co m Not Available [facility] [address] [place], [address], 07/23/2025 16:57:53 07/20/2007/23/2025 INTER PRETA TION interpretati on Speci fic Level of Aller gen IGE Class kU/L Speci fic IGE Antib gisselle ----- ----- ---- ----- ----- ----- ---- 0 <0.10 Absen t/Und etect able 0/1 0.10- 0.34 Very Low Level 1 0.35- 0.69 Low Level 2 0.70- 3.49 Moder ate Level 3 3.50- 17.4 High Level 4 17.5- 49.9 Very High Level 5 50-10 0 Very High Level 6 >100 Very High Level The clini felton relev ance of aller gen resul ts of 0.10- 0.34 kU/L are undet ermin ed and inten ded for speci alist use. Aller gens denot ed with a inclu de resul ts using one or more edward te speci fic reage nts. In those cases , the test was devel oped and its edward tical perfo rmanc e shandra cteri stics have been deter mined by [facility] roseanna s. It has not been clear ed or appro gissell by the U.S. Food and Drug Admin istra tion. This assay has been valid ated pursu ant to the CLIA regul ation s and is used for clini felton purpo ses. Not Available [facility] [address] [place], [address], 07/23/2025 16:57:54 07/20/2007/23/2025 DIREC T LDL direct LDL 100 mg/dL <100 high Christine able range <100 mg/dL for prima ry preve ntion ; <70 mg/dL for patie nts with CHD or diabe tic patie nts with > or = 2 CHD risk facto rs. Not Available [facility] [address] [place], [address], 07/23/2025 16:57:55 07/20/20 25 07/20/2025 trigl yceri tabby, serum Triglyceride s 226 Not Available [facility] ( [facility]) [address] [place], [address], 07/20/2025 09:04:20 Result Notes None recorded. Problems Name Problem SNOMED Code Status Onset Date Resolution Date Notes Provider Name and Address Organization Details Recorded Time Blood in urine 78102296 Active 2022 Trace amounts of blood in urine for his whole life Sunshine mg [facility], L.L[facility]CLaurent 4 15:21:27 Gastroeso phageal reflux disease 174724832 Active 2022 [facility] 4 08:10:39 Migraine 99542583 Active 2022 Migraine Headache Sun[facility] 4 15:21:35 Colonosco py Active 2022 Colonosco py; 12/10/09 @ [facility] [place], needs repeat colonosco py 2021 Sunshine [facility], L.L.CLaurent 4 15:21:31 Benign essential hypertens ion 9409266 Active 2022 EZEQUIEL mg [facility], LLaurentLLaurentCLaurent 4 08:10:15 Compressi on fracture of thoracic vertebra 425866388632 4 Active 2023 hx of EZEQUIEL mg [facility], MichelleLLaurentCLaurent 5 08:05:27 Anxiety 80491438 Active 2024 EZEQUIEL LENTZ [facility] L.L.CLaurent 5 08:05:33 Hyperlipi demia 53347966 Active 2024 EZEQUIEL LENTZ [facility] 5 08:05:19 Problem Notes None recorded. Procedures Surgical History Date Name Laterality Status Provider Name and Address Organization Details Recorded Time excision of spermatocele completed [facility] LLaurentL.CLaurent 01/23/2024 09:19:01 vasectomy completed [facility], L.L.CLaurent 01/23/2024 09:19:08 Imaging Results None recorded. Procedure Notes None recorded. Medical Equipment None Reported. Allergies Allergen ID Allergen Name Allergen Category Reaction Reaction Severity Criticality Documentation Date Start Date Code Code System Note Provider Name and Address Organization Details Recorded Time 00661 dexametha sone medicatio n other moderate low 06/02/20232020 3264 RxNorm React ion: Sever e Anxie ty [facility], L.L.CLaurent 4 12:33:12 21199 codeine medicatio n Not available Not available Not available 06/02/2023 2670 RxNorm [facility] 4 12:32:53 Medications Name Sig Start Date Stop Date Status Note LastModified by Organization Details LastModified Time paroxetin e 10 mg tablet TAKE 1 TABLET BY MOUTH DAILY 02/12 completed Not Available Not Available Not Available simvastat in 10 mg tablet Take 1 tablet by oral route for 90 days. 2024 active Not Available Not Available Not Avai lable sulfameth oxazole 800 mg-trimet hoprim 160 mg tablet TAKE 1 TABLET BY MOUTH TWICE DAILY FOR 5 DAYS 01/22 completed Not Available Not Available Not Available tramadol 50 mg tablet TAKE 1 TABLET BY MOUTH EVERY 6 HOURS FOR 5 DAYS FOR BREAKTHR OUGH PAIN 01/30 completed Not Available Not Available Not Available meloxicam 7.5 mg tablet TAKE 1 TABLET BY MOUTH DAILY 01/30 completed Not Available Not Available Not Available calcitoni n (salmon) 200 unit/actu ation nasal spray INSTILL 1 SPRAY IN EACH NOSTRIL INTRANAS ALLY 01/30 completed Not Available Not Available Not Available benzonata te 100 mg capsule TAKE 1 CAPSULE BY MOUTH THREE TIMES DAILY FOR 5 DAYS 01/22 completed Not Available Not Available Not Available cephalexi n 500 mg capsule TAKE ONE CAPSULE BY MOUTH TWICE DAILY FOR 5 DAYS FOR CELLULIT IS 01/22 completed Not Available Not Available Not Available paroxetin e 20 mg tablet TAKE 1 TABLET BY MOUTH DAILY 2024 active Not Available Not Available Not Avai lable neomycin- polymyxin -dexameth 3.5 mg/mL-10, 000 unit/mL-0 .1% eye drops SHAKE LIQUID AND INSTILL 1 DROP IN LEFT EYE THREE TIMES DAILY 01/22 completed Not Available Not Available Not Available metoprolo l tartrate 50 mg tablet TAKE 1 AND 1/2 TABLETS BY MOUTH TWICE DAILY active Not Available Not Available No t Available omeprazol e 20 mg capsule,d elayed release 1 tablet daily active Not Available Not Available No t Available irbesarta n 75 mg tablet Take 1 tablet every day by oral route. 03/17 completed Not Available Not Available Not Available irbesarta n 150 mg tablet TAKE 1 TABLET BY MOUTH DAILY active Not Available Not Available No t Available Pepcid 20 mg tablet Take 1 tablet twice a day by oral route. active Not Available Not Available No t Available amoxicill in 875 mg-potass ium clavulana te 125 mg tablet TAKE 1 TABLET BY MOUTH EVERY 12 HOURS FOR 7 DAYS 01/22 completed Not Available Not Available Not Available neomycin 3.5 mg/g-poly myxin B 10,000 unit/g-de xameth 0.1 % eye oint APPLY TO LOWER LEFT LID TWICE DAILY FOR 1 WEEK 01/22 completed Not Available Not Available Not Available magnesium daily 01/22 completed 0; Recorded 01/09/20 23 10:33AM by Sil Marquez RN, Office Visit; Not Available Not Available Not Available valsartan 50mg 1.5 tabs in am and pm 02/05 completed Not Available Not Available Not Available omeprazol e 01/22 completed Not Available Not Available Not Available simvastat in 12/13 completed Not Available Not Available Not Available Multi-Vit webster daily active Not Available Not Available Not Available metoprolo l succinate two times daily 01/22 completed 0; Recorded 01/09/20 23 10:33AM by Sil Marquez, ELZA, Office Visit; Not Available Not Available Not Available Italia daily 01/22 completed 0; Recorded 01/09/20 23 10:33AM by Sil Marquez RN, Office Visit; Not Available Not Available Not Available Vitamin-C 1 daily active Not Available Not Av ailable Not Available valsartan 320 mg-hydroc hlorothia zide 12.5 mg tablet daily 01/22 completed 0; Recorded 01/09/20 23 10:33AM by Sil Marquez RN, Office Visit; Not Available Not Available Not Available ketorolac 30 mg/mL injection solution Inject 2 mL every day by intraven ous route for 1 day. 04/21 completed Not Available Not Available Not Available Italia Allergy 180 mg tablet Take 1 tablet every day by oral route. active Not Available Not Available No t Available Magnesium (oxide/AA chelate) 01/22 completed Not Available Not Available Not Available Vitals Date Recorded Body height Body mass index (BMI) Body weight Body temperature Heart rate Oxygen saturation Systolic And Diastolic Provider Name and Address Organization Details Last Updated DateTime 182.88 cm 25.5 kg/m2 81946.3 7 g 97.5 [degF] 72 /min 97 % 134/70 mm[Hg] EZEQUIEL LENTZ [facility] 08:35:38 Social History Question Answer Notes LastModified by Organizat ion Details LastModified Time Tobacco Smoking Status Former Smoker EZEQUIEL mg [facility] 01/23/2024 09:18:47 When Did You Quit Smoking? 16+yearssinc elastcigaret te [email or web address] Information not available 07/31/2025 What Was The Date Of Your Most Recent Tobacco Screening? 07/31/2025 [email or web address] Information not available 07/31/2025 What Is Your Current Pack Years? 10packyears [email or web address] Information not available 07/31/2025 Sex: Unknown Functional Status Question Answer Note LastModified by Organizat ion Details LastModified Time Do you use any illicit or recreational drugs? No [email or web address] Information not available 01/23/2024 Do you or have you ever used any other forms of tobacco or nicotine? No [email or web address] Information not available 01/23/2024 What is your level of alcohol consumption? Occasional [email or web address] Information not available 01/23/2024 Do you or have you ever used any nicotine-free cigarettes, vape, or chewing tobacco? No [email or web address] Information not available 07/31/2025 Mental Status None recorded. Family History Relationship Description Onset Age of this Age Resolved Age Notes LastModified by Organization Details LastModified Time Mother Malignant neoplasm of breast [email or web address] Not available 01/22 08:11:23 Maternal Grandmother Diabetes mellitus [email or web address] Not available 01/22 08:11:33 Father Aneurysm Not availab le 01/23/2024 08:11:44 Medical History No medical history recorded. Immunizations Vaccine Type Date Status Note Provider Nam e and Address Organization Details Recorded Time zoster live 0 completed Not Available [facility] 06/02/2023 02:51:00 Tdap 3 completed Not Available [facility] 06/02/2023 02:51:00 COVID-19, mRNA, LNP-S, PF, 30 mcg/0.3 mL dose 2 completed Not Available [facility] 06/02/2023 02:51:00 Influenza, split virus, trivalent, preservative 0 completed Not Available [facility] 06/02/2023 02:51:00 Influenza, split virus, trivalent, preservative 8 completed Not Available [facility] 06/02/2023 02:51:00 Tdap 7 completed Not Available [facility] 06/02/2023 02:51:00 COVID-19, mRNA, LNP-S, bivalent, PF, 50 mcg/0.5 mL or 25mcg/0.25 mL dose 3 completed EZEQUIEL mg, [facility] 01/23/2024 11:28:41 RSV, bivalent, protein subunit RSVpreF, diluent reconstituted, 0.5 mL, PF 3 [facility] 01/23/2024 11:28:41 COVID-19, mRNA, LNP-S, PF, kyara-sucrose, 30 mcg/0.3 mL 3 completed EZEQUIEL LENTZ [facility] 01/23/2024 11:28:41 COVID-19, mRNA, LNP-S, PF, 50 mcg/0.5 mL 4 completed EZEQUIEL LENTZ [facility] 03/26/2024 12:22:40 COVID-19, mRNA, LNP-S, PF, 50 mcg/0.5 mL 4 completed EZEQUIEL [facility] 01/30/2025 08:04:41 Influenza, high-dose, trivalent, PF 4 completed EZEQUIEL [facility] 01/30/2025 08:04:41 Influenza, adjuvanted, quadrivalent, PF 2 completed BRICE RUSSO [facility] 03/31/2023 09:22:40 COVID-19, mRNA, LNP-S, PF, 100 mcg/0.5mL dose or 50 mcg/0.25mL dose 1 completed [facility] 03/31/2023 09:22:40 COVID-19, mRNA, LNP-S, PF, 100 mcg/0.5mL dose or 50 mcg/0.25mL dose 1 completed TAMATHA GREEN [facility], [facility] 03/31/2023 09:22:40 COVID-19, mRNA, LNP-S, PF, 100 mcg/0.5mL dose or 50 mcg/0.25mL dose 1 completed TAMATHA GREEN null, [facility] 03/31/2023 09:22:40 COVID-19, mRNA, LNP-S, PF, 30 mcg/0.3 mL dose, kyara-sucrose 2 completed TAMATHA GREEN null, [facility] 03/31/2023 09:22:40 COVID-19, mRNA, LNP-S, bivalent, PF, 50 mcg/0.5 mL or 25mcg/0.25 mL dose 2 completed TAMATHA GREEN [facility] 03/31/2023 09:22:40 Past Encounters Encounter ID Performer Location Encounter Start Date Encounter Closed Date Diagnosis/Indication Diagnosis SNOMED-CT Code Diagnosis ICD10 Code Diagnosis IMO Codes Diagnosis Note [id number] Tiff Kitchen MD [facility] ([facility]) [address] [place] [id number] 07/20/2025 08:57:38 07/21/2025 10:08:30 Chronic diarrhea [id number] K52.9 [id number] T[address] Kitchen MD [facility] ([facility]) [address] [place] [phone] 07/31/2025 08:29:55 08/06/2025 12:11:17 Hyperlipidemia [id number] E78.5 Hyperglycemia [id number] R 73.9 [id number] we discussed diet and exercise to help him lose weight. Health Concerns Section Related Observation LastModified by Organization Detai ls LastModified Time None Recorded Concern Status LastModified by Organization Details LastModified Time None Recorded Payers Encounter Date Sequence Insurance Name Policy Number Policy Leyva Covered Member ID Leyva Member ID Guarantor Name 07/31/2025 1 [place]ARE [place]: [place] Nathaniel Lainez [id number] Nathaniel Migel 07/31/2025 2 [employer] [place]: SENIOR CLASSIC F (MEDICARE SUPPLEMENT) [id number] Nathaniel Lainez [id number] Nathaniel Pelayojuleswinston Notes Date Note Type Note Provider Name and Address Organization Details Recorded Time 5 text/html HyperlipidemiaReported by PatientHPIFor duration, patient reportschronic. For control, patient reportsimproving. For adherence to treatment plan, patient reportstakes medications as prescribed. For complications, patient reportsno coronary artery diseaseandno cardiovascular disease. For prior tests, (ldl 100 trig 226).ROS as noted in the HPI f/u on alpha gal panel the reason for requesting alpha gal testing was that once he had diarrhea after eating pork. it lasted 4 days, however. if he eats larger portions of steak he might have upset stomach and have to have a bm. sx's started 3-4 hours later. no hives no rash no angioedema. no other signs of anaphylaxis. if he eats smaller portions of meat he is fine. no reaction to dairy at all. Tiff Kitchen MD [address] [place] [address], [phone], [facility] 07/31/2025 09:18:16
--- OUTSIDE RECORDS SUMMARY | 2025-09-24 15:27 | XMS_ITS | Data Portability ---
Author Organization ALE[facility], .LLaurentLaurent [facility] Address [address] [address] Care Team Providers Care Urogynaecologist Name Role Phone TIFF KITCHEN Primary Care Provider Assessment Encounter Date Assessment Date Assessment LastModified by Organization Details LastModified Time 07/31/2025 07/31/2025 The diagnostic criteria for alpha-gal syndrome require a combination of clinical and laboratory findings. The [place] [employer] states that diagnosis is based [...] more concerning allergies and plan of action. [email or web address] Not available 07/31/2025 08:51:22 Plan of Treatment Reminders Order Date Submit Date Provider Last Modified By Organization Details Last Modified Time Details Appointments None recorded. Lab alpha-gal ige, serum 2024 025 [facility], [address], [address], [place], [address], 16:57:53 LDL, direct, serum 2024 025 [facility], [address], [address], [place], [address], 16:57:55 PSA, serum or plasma 2024 025 [email or web address], [address], [address], [place], [address], 5 12:05:27 hemoglobin A1C/hemoglo bin total, QN, blood 2024 025 [facility], [address] [facility], [address], [place], [address], 10:08:08 CMP, serum or plasma 2024 025 [facility], [address] [facility], [place], [address], 5 10:29:03 CBC 2024 025 [facility], [address] [facility], [place], [address], 5 09:55:01 triglycerid es, serum 2024 025 [facility] ([facility]), [address] [facility], [place], [address], 5 10:23:01 PSA, total, serum or plasma 2024 025 [email or web address], [address], [address], [place], [address], 10:08:47 CMP, serum or plasma 2024 025 [facility], [address] [facility], [facility], [place], [address], 09:40:40 lipid panel, blood 2024 025 [facility], [address] [facility], [facility] [address], [place], [address], 09:40:42 CBC 2024 025 [facility], [address] [facility], [facility] 1, [place], [address], 09:06:01 Referral None recorded. Procedures None recorded. Surgeries None recorded. Imaging US, neck, soft tissue - 10167 2024 025 [facility] ([facility]), [address] [place], [address], 08:56:25 Medication Orders simvastatin 10 mg tablet 2024 025 [id number], [address], [place], [place], [id number], 09:13:56 simvastatin 10 mg tablet 2024 025 [facility] #[id number], [address], [place], [place], [id number], 08:34:28 Patient TargetsNo targets recorded. Patient InstructionsNo instructions recorded. Reason for Referral None Reported. Results Created Date Observation Date Name Description Value Unit Range Abnormal Flag Note LastModifiedBy Organization Detail LastModifiedTime 01/27/20 25 01/26/2025 CBC WBC 5.3 x10 4.5-10 .5 Not Available [facility] [address] [facility] [address], [place], [address], 01/26/2025 09:06:00 01/27/2001/26/2025 CBC RBC 5.02 x10 4.30-5 .90 Not Available [facility] [address] [facility] 1, [place], [address], 01/26/2025 09:06:00 01/27/2001/26/2025 CBC HGB 15.1 g/dL 13.5-1 8.0 Not Available [facility] [address] [facility] 1, [place], [address], 01/26/2025 09:06:00 01/27/2001/26/2025 CBC HCT 45.4 % 35.0-6 0.0 Not Available [facility] [address] [facility] 1, [place], [address], 01/26/2025 09:06:00 01/27/2001/26/2025 CBC MCV 90.5 fL 80.0-9 9.9 Not Available [facility] [address] [facility] 1, [place], [address], 01/26/2025 09:06:00 01/27/2001/26/2025 CBC MCH 30.2 pg 27.0-3 2.0 Not Available [facility] [address] [facility] 1, [place], [address], 01/26/2025 09:06:00 01/27/2001/26/2025 CBC MCHC 33.3 g/dL 32.0-3 6.0 Not Available [facility] [address] [facility] 1, [place], [address], 01/26/2025 09:06:00 01/27/2001/26/2025 CBC RDW 13.9 % 11.5-1 4.5 Not Available [facility] [address] [facility] [address], [place], [address], 01/26/2025 09:06:00 01/27/20 25 01/26/2025 CBC plt 182.0 x10 150.0- 451.0 Not Available [facility] [address] [facility] [address], [place], [address], 01/26/2025 09:06:00 01/27/20 25 01/26/2025 CBC lymphocytes % 30.8 % 20.0-5 0.0 Not Available [facility] [address] [facility] [address], [place], [address], 01/26/2025 09:06:00 01/27/2001/26/2025 CBC granulcytes % 55.8 % 30.0-7 0.0 Not Available [facility] [address] [address], [place], [address], 01/26/2025 09:06:00 01/27/20 25 01/26/2025 CBC monocytes % 9.0 % 2.0-16 .0 Not Available [facility] [address] [address], [place], [address], 01/26/2025 09:06:00 01/27/20 25 01/26/2025 CBC granulcytes# 2.9 x10 Not Lisa ilable [facility] [address] [address], [place], [address], 01/26/2025 09:06:00 01/27/2001/26/2025 CBC lymphocytes # 1.6 x10 Not Available [facility] [address] [address], [place], [address], 01/26/2025 09:06:00 01/27/20 25 01/26/2025 CBC monocytes # 0.5 x10 Not Avai lable [facility] [address] [facility] [address], [place], [address], 01/26/2025 09:06:00 01/27/20 25 01/26/2025 CMP (MALE ) glucose 117.0 mg/dL 60.0-9 9.0 high Not Available [facility] [address] [facility] [address], [place], [address], 01/26/2025 09:40:40 01/27/20 25 01/26/2025 CMP (MALE ) BUN (blood urea nitrogen) 17.0 mg/dL 10.0-2 6.0 Not Available [facility] [address] [facility] 1, [place], [address], 01/26/2025 09:40:40 01/27/20 25 01/26/2025 CMP (MALE ) creatinine (serum) 0.9 mg/dL 0.4-1. 5 Not Available [facility] [address] [facility] [address], [place], [address], 01/26/2025 09:40:40 01/27/20 25 01/26/2025 CMP (MALE ) BUN/creatini ne ratio 18.89 ratio Not Available [facility] [address] [facility] [address], [place], [address], 01/26/2025 09:40:40 01/27/20 25 01/26/2025 CMP (MALE ) eGFR calculated 88.2 Not Available [facility] [address] [facility] [address], [place], [address], 01/26/2025 09:40:40 01/27/20 25 01/26/2025 CMP (MALE ) total protein 7.4 g/dL 6.0-8. 5 Not Available [facility] [address] [facility] [address], [place], [address], 01/26/2025 09:40:40 01/27/20 25 01/26/2025 CMP (MALE ) total bilirubin 0.8 mg/dL 0.2-1. 3 Not Available [facility] [address] [facility] [address], [place], [address], 01/26/2025 09:40:40 01/27/20 25 01/26/2025 CMP (MALE ) albumin 4.2 g/dL 3.5-5. 5 Not Available [facility] [address] [facility] [address], [place], [address], 01/26/2025 09:40:40 01/27/20 25 01/26/2025 CMP (MALE ) globulin 3.2 calc Not Available [facility] [address] [address], [place], [address], 01/26/2025 09:40:40 01/27/20 25 01/26/2025 CMP (MALE ) AST (SGOT) 31.0 U/L 0.0-46 .0 Not Available [facility] [address] [facility] [address], [place], [address], 01/26/2025 09:40:40 01/27/20 25 01/26/2025 CMP (MALE ) altv (SGPT) 25.0 U/L 13.0-6 9.0 normal Not Available [facility] [address] [facility] [address], [place], [address], 01/26/2025 09:40:40 01/27/20 25 01/26/2025 CMP (MALE ) A/G ratio 1.3 ratio Not Available [facility] [address] [facility] [address], [place], [address], 01/26/2025 09:40:40 01/27/20 25 01/26/2025 CMP (MALE ) ALP phos 78.0 U/L 30.0-1 40.0 normal Not Available [facility] [address] [facility] [address], [place], [address], 01/26/2025 09:40:40 01/27/20 25 01/26/2025 CMP (MALE ) calcium 9.0 mg/dL 8.4-10 .5 Not Available [facility] [address] [facility] [address], [place], [address], 01/26/2025 09:40:40 01/27/20 25 01/26/2025 CMP (MALE ) sodium 141.0 mmol/ L 136.0- 145.0 Not Available [facility] [address] [facility] [address], [place], [address], 01/26/2025 09:40:40 01/27/20 25 01/26/2025 CMP (MALE ) potassium 4.5 mmol/ L 3.5-5. 1 Not Available [facility] [address] [facility] [address], [place], [address], 01/26/2025 09:40:40 01/27/20 25 01/26/2025 CMP (MALE ) chloride 107.0 mmol/ L 98.0-1 10.0 normal Not Available [facility] [address] [facility] [address], [place], [address], 01/26/2025 09:40:40 01/27/20 25 01/26/2025 CMP (MALE ) C02 28.0 mmol/ L 22.0-3 1.0 Not Available [facility] [address] [facility] [address], [place], [address], 01/26/2025 09:40:40 01/27/20 25 01/26/2025 CMP (MALE ) anion gap 6.0 calc Not Available [facility] [address] [facility] [address], [place], [address], 01/26/2025 09:40:40 01/27/20 25 01/26/2025 CMP (MALE ) osmolality 293.5 calc Not Available [facility] [address] [facility] [address], [place], [address], 01/26/2025 09:40:40 01/27/20 25 01/26/2025 LIPID PROFI LE (MALE ) cholesterol 224.0 mg/dL 0.0-20 0.0 high Not Available [facility] [address] [facility] [address], [place], [address], 01/26/2025 09:40:42 01/27/20 25 01/26/2025 LIPID PROFI LE (MALE ) trig 262.0 mg/dL 0.0-15 0.0 high Not Available [facility] [address] [address], [place], [address], 01/26/2025 09:40:42 01/27/20 25 01/26/2025 LIPID PROFI LE (MALE ) HDL - direct 42.0 mg/dL >40.0 Not Available [facility] [address] [facility] [address], [place], [address], 01/26/2025 09:40:42 01/27/20 25 01/26/2025 LIPID PROFI LE (MALE ) VLDL - direct 52.4 mg/dL Not Available [facility] [address] [address], [place], [address], 01/26/2025 09:40:42 01/27/20 25 01/26/2025 LIPID PROFI LE (MALE ) LDL - direct 129.6 mg/dL 0.0-13 0.0 Not Available [facility] [address] [address], [place], [address], 01/26/2025 09:40:42 01/27/20 25 01/27/2025 PSA, TOTAL PSA, total 1.15 NG/mL < or = 4.00 normal The total PSA value from this assay syste m is stand ardiz ed again st the WHO stand andrey. The test resul t will be appro ximat alva 20% lower when adrian red to the equim olar- stand ardiz ed total PSA (Wright man Coult er). Adrian rison of seria l PSA resul ts shoul d be inter prete d with this fact in mind. This test was perfo rmed using the Rdio ns chemi lumin escen t metho d. Value s obtai lisa from diffe rent assay metho ds canno t be used inter estrada eably . PSA level s, regar dless of value , shoul d not be inter prete d as absol kareem evide nce of the prese nce or absen ce of disea se. Not Available [facility] [address] [place], [address], 01/27/2025 07:05:12 07/20/2007/20/2025 CBC WBC 5.7 x10 4.5-10 .5 Not Available [facility] [address] [address], [place], [address], 07/20/2025 09:55:00 07/20/2007/20/2025 CBC RBC 4.89 x10 4.30-5 .90 Not Available [facility] [address] [facility] [address], [place], [address], 07/20/2025 09:55:00 07/20/2007/20/2025 CBC HGB 14.5 g/dL 13.5-1 8.0 Not Available [facility] [address] [facility] [address], [place], [address], 07/20/2025 09:55:00 07/20/2007/20/2025 CBC HCT 44.9 % 35.0-6 0.0 Not Available [facility] [address] [facility] [address], [place], [address], 07/20/2025 09:55:00 07/20/2007/20/2025 CBC MCV 91.8 fL 80.0-9 9.9 Not Available [facility] [address] [facility] 1, [place], [address], 07/20/2025 09:55:00 07/20/2007/20/2025 CBC MCH 29.7 pg 27.0-3 2.0 Not Available [facility] [address] [facility] 1, [place], [address], 07/20/2025 09:55:00 07/20/2007/20/2025 CBC MCHC 32.3 g/dL 32.0-3 6.0 Not Available [facility] [address] [facility] 1, [place], [address], 07/20/2025 09:55:00 07/20/2007/20/2025 CBC RDW 13.8 % 11.5-1 4.5 Not Available [facility] [address] [facility] 1, [place], [address], 07/20/2025 09:55:00 07/20/2007/20/2025 CBC plt 181.0 x10 150.0- 451.0 Not Available [facility] [address] [facility] 1, [place], [address], 07/20/2025 09:55:00 07/20/2007/20/2025 CBC lymphocytes % 31.9 % 20.0-5 0.0 Not Available [facility] [address] [facility] 1, [place], [address], 07/20/2025 09:55:00 07/20/2007/20/2025 CBC granulcytes % 54.7 % 30.0-7 0.0 Not Available [facility] [address] [facility] 1, [place], [address], 07/20/2025 09:55:00 07/20/2007/20/2025 CBC monocytes % 9.1 % 2.0-16 .0 Not Available [facility] [address] [place] [address] [facility] 1, [place], [address], 07/20/2025 09:55:00 07/20/2007/20/2025 CBC granulcytes# 3.1 x10 Not Lisa ilable [facility] [address] [place] [facility], [place], [address], 07/20/2025 09:55:00 07/20/2007/20/2025 CBC lymphocytes # 1.8 x10 Not Available [facility] [address] [place] [address] [address], [place], [address], 07/20/2025 09:55:00 07/20/2007/20/2025 CBC monocytes # 0.5 x10 Not Avai lable [facility] [address] [place] [facility], [place], [address], 07/20/2025 09:55:00 07/20/2007/20/2025 HBA1C hemaglobin A1C 5.4 4.2-6. 5 Not Available [facility] [address] [place] [address] [facility] 1, [place], [address], 07/20/2025 10:08:08 07/20/2007/20/2025 CMP (MALE ) glucose 113.0 mg/dL 60.0-9 9.0 high Not Available [facility] [address] [place] [facility], [place], [address], 07/20/2025 10:29:03 07/20/2007/20/2025 CMP (MALE ) BUN (blood urea nitrogen) 15.0 mg/dL 10.0-2 6.0 Not Available [facility] [address] [facility] Qu[facility] 1, [place], [address], 07/20/2025 10:29:03 07/20/20 25 07/20/2025 CMP (MALE ) creatinine (serum) 0.9 mg/dL 0.4-1. 5 Not Available [facility] [address] [facility], [place], [address], 07/20/2025 10:29:03 07/20/2007/20/2025 CMP (MALE ) BUN/creatini ne ratio 16.67 ratio Not Available [facility] [address] [facility], [place], [address], 07/20/2025 10:29:03 07/20/20 25 07/20/2025 CMP (MALE ) eGFR calculated 88.2 Not Available [facility] [address] [place] [facility], [place], [address], 07/20/2025 10:29:03 07/20/20 25 07/20/2025 CMP (MALE ) total protein 7.3 g/dL 6.0-8. 5 Not Available [facility] [address] [facility] 1, [place], [address], 07/20/2025 10:29:03 07/20/20 25 07/20/2025 CMP (MALE ) total bilirubin 1.3 mg/dL 0.2-1. 3 Not Available [facility] [address] [place] [facility], [place], [address], 07/20/2025 10:29:03 07/20/20 25 07/20/2025 CMP (MALE ) albumin 4.2 g/dL 3.5-5. 5 Not Available [facility] [address] [facility], [place], [address], 07/20/2025 10:29:03 07/20/20 25 07/20/2025 CMP (MALE ) globulin 3.1 calc Not Available [facility] [address] [facility] 1, [place], [address], 07/20/2025 10:29:03 07/20/20 25 07/20/2025 CMP (MALE ) AST (SGOT) 30.0 U/L 0.0-46 .0 Not Available [facility] [address] [facility] 1, [place], [address], 07/20/2025 10:29:03 07/20/20 25 07/20/2025 CMP (MALE ) altv (SGPT) 20.0 U/L 13.0-6 9.0 normal Not Available [facility] [address] [facility] 1, [place], [address], 07/20/2025 10:29:03 07/20/20 25 07/20/2025 CMP (MALE ) A/G ratio 1.4 ratio Not Available [facility] [address] [place] [address] [facility] 1, [place], [address], 07/20/2025 10:29:03 07/20/20 25 07/20/2025 CMP (MALE ) ALP phos 76.0 U/L 30.0-1 40.0 normal Not Available [facility] [address] [facility] 1, [place], [address], 07/20/2025 10:29:03 07/20/20 25 07/20/2025 CMP (MALE ) calcium 9.3 mg/dL 8.4-10 .5 Not Available [facility] [address] [facility] 1, [place], [address], 07/20/2025 10:29:03 07/20/20 25 07/20/2025 CMP (MALE ) sodium 140.0 mmol/ L 136.0- 145.0 Not Available [facility] [address] [place] [facility], [place], [address], 07/20/2025 10:29:03 07/20/2007/20/2025 CMP (MALE ) potassium 4.3 mmol/ L 3.5-5. 1 Not Available [facility] [address] [facility] [address], [place], [address], 07/20/2025 10:29:03 07/20/2007/20/2025 CMP (MALE ) chloride 106.0 mmol/ L 98.0-1 10.0 normal Not Available [facility] [address] [facility] [address], [place], [address], 07/20/2025 10:29:03 07/20/2007/20/2025 CMP (MALE ) C02 28.0 mmol/ L 22.0-3 1.0 Not Available [facility] [address] [facility] [address], [place], [address], 07/20/2025 10:29:03 07/20/2007/20/2025 CMP (MALE ) anion gap 6.0 calc Not Available [facility] [address] [facility] [address], [place], [address], 07/20/2025 10:29:03 07/20/2007/20/2025 CMP (MALE ) osmolality 290.7 calc Not Available [facility] [address] [facility] [address], [place], [address], 07/20/2025 10:29:03 07/20/20 25 07/23/2025 ALPHA GAL PANEL beef (F27) IgE 1.00 kU/L high Not Available [facility] [address] [facility] [place], [address], 07/23/2025 16:57:53 07/20/20 25 07/23/2025 ALPHA GAL PANEL class 2 Not Available [address] [address] [place], [address], 07/23/2025 16:57:53 07/20/20 25 07/23/2025 ALPHA GAL PANEL marquez (F88) IgE 0.34 kU/L high Not Available [address], [address], 07/23/2025 16:57:53 07/20/20 25 07/23/2025 ALPHA GAL PANEL class 0/1 Not Available [address], [address], 07/23/2025 16:57:53 07/20/20 25 07/23/2025 ALPHA GAL PANEL pork (F26) IgE 0.12 kU/L high Not Available [address] [address] [place], [address], 07/23/2025 16:57:53 07/20/2007/23/2025 ALPHA GAL PANEL class 0/1 Not Available [address], [address], 07/23/2025 16:57:53 07/20/2007/23/2025 ALPHA GAL PANEL galactose [...] these antib odies may be direc amanda garcia ds aller gens revea led or alter [...] and not on any singl e diagn ostic metho d. Addit ional infor viriidana hall can be found at http: //www .phad ia.co m Not Available [employer] [facility] [address] [place], [address], 07/23/2025 16:57:53 07/20/20 25 07/23/2025 INTER PRETA TION interpretati on Speci fic [...] have been deter mined by [facility]. It has not been clear ed or appro gissell by the U.S. Food and Drug Admin istra tion. This assay has been valid ated pursu ant to the CLIA regul ation s and is used for clini felton purpo ses. Not Available [facility] [address] [place], [address], 07/23/2025 16:57:54 07/20/20 25 07/23/2025 DIREC T LDL direct LDL 100 mg/dL <100 high Christine able range <100 mg/dL for prima ry preve ntion ; <70 mg/dL for patie nts with CHD or diabe tic patie nts with > or = 2 CHD risk facto rs. Not Available [facility] [address] [address] , [place], [address], 07/23/2025 16:57:55 07/20/20 25 07/20/2025 trigl yceri tabby, serum Triglyceride s 226 Not Available [facility] [address] [place], [address], 07/20/2025 09:04:20 02/18/20 25 02/16/2025 US, neck, soft tissu e No observ ation record ed. [address] [place], [address], 02/18/2025 14:40:57 Result Notes None recorded. Problems Name Problem SNOMED Code Status Onset Date Resolution Date Notes Provider Name and Address Organization Details Recorded Time Blood in urine 59017379 Active 2022 Trace amounts of blood in urine for his whole life Sunshine [facility] [place] 4 15:21:27 Gastroeso phageal reflux disease 856000772 Active 2022 EZEQUIEL mg [facility] [place] 4 08:10:39 Migraine 16104056 Active 2022 Migraine Headache [facility] 4 15:21:35 Colonosco py Active 2022 Colonosco py; 12/10/09 @ [facility] [place] [facility] Lacy, needs repeat colonosco py 2021 Sunshine Plkeiko [facility] 4 15:21:31 Benign essential hypertens ion 2305069 Active 2022 EZEQUIEL LENTZ [facility] 4 08:10:15 Compressi on fracture of thoracic vertebra 607205904534 4 Active 2023 hx of [facility] 5 08:05:27 Anxiety 65873398 Active 2024 [facility] LENTZ [facility] 5 08:05:33 Hyperlipi demia 03775335 Active 2024 [facility] LENTZ [facility] 5 08:05:19 Problem Notes None recorded. Procedures Surgical History Date Name Laterality Status Provider Name and Address Organization Details Recorded Time excision of spermatocele completed [facility] 01/23/2024 09:19:01 vasectomy completed [facility] 01/23/2024 09:19:08 Imaging Results None recorded. Procedure Notes None recorded. Medical Equipment None Reported. Allergies Allergen ID Allergen Name Allergen Category Reaction Reaction Severity Criticality Documentation Date Start Date Code Code System Note Provider Name and Address Organization Details Recorded Time 56377 dexametha sone medicatio n other moderate low 06/02/20232020 3264 RxNorm React ion: Sever e Anxie ty Sunshine Melina [facility]CL[facility]rent 4 12:33:12 79565 codeine medicatio n Not available Not available Not available 06/02/2023 2670 RxNorm Sunshinemartin Summers [facility], [place] [facility].. 4 12:32:53 Medications Name Sig Start Date [...] and Address Organization Details Last Updated DateTime 5 182.88 cm 26 kg/m2 87733.7 4 g 97.1 [degF] 71.01 /min 99 % 122/72 mm[Hg] EZEQUIEL LENTZ [facility] 5 08:09:18 Date Recorded Body height Body mass index (BMI) Body weight Body temperature Heart rate Oxygen saturation Systolic And Diastolic Provider Name and Address Organization Details Last Updated DateTime 5 182.88 cm 25.5 kg/m2 75048.3 7 g 97.5 [degF] 72 /min 97 % 134/70 mm[Hg] EZEQUIEL LENTZ [facility] 5 08:35:38 Social History Question Answer Notes LastModified by Leinentausch Details LastModified Time Tobacco Smoking Status Former Smoker EZEQUIELDena L[facility]Z [facility] [facility] 01/23/2024 09:18:47 When Did You Quit Smoking? 18+yearssinc [email or web address] te Information not available 07/31/2025 What Was The Date Of Your Most Recent Tobacco Screening? 07/31/2025 [email or web address] Information not available 07/31/2025 What Is Your Current Pack Years? 10packyears [email or web address] Information not available 07/31/2025 Sex: Unknown Functional Status Question Answer Note LastModified by Leinentausch Details LastModified Time Do you use any illicit or recreational drugs? No [email or web address] Information not available 01/23/2024 Do you or have you ever used any other forms of tobacco or nicotine? No [email or web address] Information not available 01/23/2024 What is your level of alcohol consumption? Occasional [email or web address] Information not available 01/23/2024 Do you or have you ever used any nicotine-free cigarettes, vape, or chewing tobacco? No [email or web address] Information not available 07/31/2025 Mental Status None recorded. Family History Relationship Description Onset Age of this Age Resolved Age Notes LastModified by Organization Details LastModified Time Mother Malignant neoplasm of breast [email or web address] Not available 01/22 08:11:23 Maternal Grandmother Diabetes mellitus [email or web address] Not available 01/22 08:11:33 Father Aneurysm [email or web address] Not availab le 01/23/2024 08:11:44 Medical History No medical history recorded. Immunizations Vaccine Type Date Status Note Provider Nam e and Address Organization Details Recorded Time zoster live 0 completed Not Available [facility] 06/02/2023 02:51:00 Tdap 3 completed Not Available [facility] 06/02/2023 02:51:00 COVID-19, mRNA, LNP-S, PF, 30 mcg/0.3 mL dose 2 completed Not Available [facility] 06/02/2023 02:51:00 Influenza, split virus, trivalent, preservative 0 completed Not Available [facility] 06/02/2023 02:51:00 Influenza, split virus, trivalent, preservative 8 completed Not Available [facility] 06/02/2023 02:51:00 Tdap 7 completed Not Available [facility] 06/02/2023 02:51:00 COVID-19, mRNA, LNP-S, bivalent, PF, 50 mcg/0.5 mL or 25mcg/0.25 mL dose 3 completed EZEQUIEL mg [facility] 01/23/2024 11:28:41 RSV, bivalent, protein subunit RSVpreF, diluent reconstituted, 0.5 mL, PF 3 completed EZEQUIEL mg [facility] 01/23/2024 11:28:41 COVID-19, mRNA, LNP-S, PF, kyara-sucrose, 30 mcg/0.3 mL 3 completed EZEQUIEL mg [facility] 01/23/2024 11:28:41 COVID-19, mRNA, LNP-S, PF, 50 mcg/0.5 mL 4 completed EZEQUIEL LENTZ [facility] 03/26/2024 12:22:40 COVID-19, mRNA, LNP-S, PF, 50 mcg/0.5 mL 4 completed EZEQUIEL LENTZ [facility] 01/30/2025 08:04:41 Influenza, high-dose, trivalent, PF 4 completed [facility] 01/30/2025 08:04:41 Influenza, adjuvanted, quadrivalent, PF 2 completed [facility] 03/31/2023 09:22:40 COVID-19, mRNA, LNP-S, PF, 100 mcg/0.5mL dose or 50 mcg/0.25mL dose 1 completed [facility] 03/31/2023 09:22:40 COVID-19, mRNA, LNP-S, PF, 100 mcg/0.5mL dose or 50 mcg/0.25mL dose 1 completed [facility] 03/31/2023 09:22:40 COVID-19, mRNA, LNP-S, PF, 100 mcg/0.5mL dose or 50 mcg/0.25mL dose 1 completed [facility] 03/31/2023 09:22:40 COVID-19, mRNA, LNP-S, PF, 30 mcg/0.3 mL dose, kyara-sucrose 2 completed [facility] 03/31/2023 09:22:40 COVID-19, mRNA, LNP-S, bivalent, PF, 50 mcg/0.5 mL or 25mcg/0.25 mL dose 2 completed [facility] 03/31/[facility]23 09:22:40 Past Encounters Encounter ID Performer Location Encounter Start Date Encounter Closed Date Diagnosis/Indication Diagnosis SNOMED-CT Code Diagnosis ICD10 Code Diagnosis IMO Codes Diagnosis Note [id number] NÉSTOR CARREON [facility] ([facility]) [address] [place] [address] [id number] 03/21/2023 19:23:27 03/21/2023 20:19:08 Pain of left ankle joint 1575241782 6178295 M25.572 No obvious fractures on x-ray. Will send to radiology for over read. RICE treatment. Zander wrap applied to ankle tonight. Patient has crutches and a boot at home. Recommend using boot and weight bearing as tolerated for 2 weeks. Can take tylenol as needed for pain. If not improving or still having pain in 2 weeks, return for re-evaluat ion. Sprain of ankle grade III 920832939 S93.402A No obvious fractures on x-ray. Will send to radiology for over read. RICE treatment. Zander wrap applied to ankle tonight. Patient has crutches and a boot at home. Recommend using boot and weight bearing as tolerated for 2 weeks. Can take tylenol as needed for pain. If not improving or still having pain in 2 weeks, return for re-evaluat ion. [id number] JANE OBRIEN [facility] ([facility]) [address] [place] [address] [id number] 5 03/31/2023 09:11:34 03/31/2023 09:57:17 Acute sinusitis 63933327 J01.90 [id number] Tiff Kitchen MD [facility] ([facility]) [address] [place] [address] [id number] 5 01/23/2024 10:28:59 01/23/2024 12:41:47 Anxiety 83155271 F41.9 Essential hypertension 81686135 I10 Hyperlipidemia 16743117 E78.5 Prostate s pecific antigen above reference range 760447435 R97.20 [id number] Tiff Kitchen MD [facility] ([facility]) [address] [place] [address] [id number] 5 03/26/2024 12:18:00 03/26/2024 15:54:04 Contusion of sacral region 178475444 S30.0XXA [id number] Tiff Kitchen MD [facility] ([facility]) [address] [place] [address] [id number] 5 04/23/2024 08:45:40 04/24/2024 10:52:37 Benign essential hypertension 9367362 I10 [id number] Tiff Kitchen MD [facility] ([facility]) [address] [place] [address] [id number] 5 09/16/2024 08:41:20 09/16/2024 12:24:32 Thoracic back pain 790919237 M54.6 Chronic cough 73880547 R 05.3 Struck by falling tree 54530731 W20.8XXA Gastroesop hageal reflux disease 107472322 K21.9 [id number] Tiff Kitchen MD [facility] ([facility]) [address] [place] [address] [id number] 5 01/15/2025 08:44:34 02/10/2025 13:11:55 [id number] Tiff Kitchen MD [facility] ([facility]) [address] [place] [address] [id number] 5 01/26/2025 08:41:37 01/27/2025 07:26:28 Benign essential hypertension 2380751 I10 Prostate s pecific antigen above reference range 855988369 R97.20 [id number] Tiff Kitchen MD [facility] ([facility]) [address] [place] [address] [id number] 01/30/2025 08:03:17 01/30/2025 23:04:02 Benign essential hypertension 0028486 I10 Anxiety 69428674 F41.9 Hyperlipidemia 18427225 E78.5 Hyperglycemia 23999353 R 73.9 we discussed diet and exercise to help him lose weight. Neck swelling 914779936 R22.1 [id number] Tiff Kitchen MD [facility] ([facility]) [address] [place] [address] [id number] 5 02/16/2025 10:51:13 02/17/2025 13:28:30 [id number] Tiff Kitchen MD [facility] ([facility]) [address] [place] [address] [id number] 5 07/20/2025 08:57:38 07/21/2025 10:08:30 Chronic diarrhea 615422672 K52.9 [id number] Tiff Kitchen MD [facility]) [address] [place] [address] [id number] 5 07/31/2025 08:29:55 08/06/2025 12:11:17 Hyperlipidemia 67938165 E78.5 Hyperglycemia 57957848 R 73.9 [id number] we discussed diet and exercise to help him lose weight. Health Concerns Section Related Observation LastModified by Organization Detai ls LastModified Time None Recorded Concern Status LastModified by Organization Details LastModified Time None Recorded Advance Directives Directive None Recorded Payers Insurance Date Sequence Insurance Name Policy Number Policy Leyva Covered Member ID Leyva Member ID Guarantor Name 08/06/2025 2 [employer]: SENIOR [employer] F (MEDICARE SUPPLEMENT) [id number] Nathaniel Lainez [id number] Nathaniel Lainez 07/20/2025 1 [place] Nathaniel Lainez [id number] Nathaniel Lainez 01/30/2025 2 [place] [id number] Nathaniel Lainez [id number] Nathaniel Lainez 07/20/2025 [facility] [facility] - [facility] (MEDICARE) Nathaniel Lainez [id number] Nathaniel Lainez Notes Date Note Type Note Provider Name and Address Organization Details Recorded Time 5 text/html Skin LesionReported by PatientHPIFor [place] For duration, patient reports___ months. For timing, patient reportsgradual. For associated symptoms, patient reportsno fever,no lesions multiplying, andno lesions spreading. For quality, (patient reports that it is a soft area). Generalized Anxiety DisorderReported by PatientHPIFor associated symptoms, patient reportsdifficulty controlling worry. For onset/timing, patient reports___ years. For severity, patient reportsmoderate. For alleviating factors, patient reportspsychotropic medication.patient reports that he is worried a lot about his and feels that is a contributing factor. he feels this is manageable. HyperlipidemiaReported by PatientHPIFor duration, patient reportschronic. For adherence to treatment plan, patient reportstakes medications as prescribed. For complications, patient reportsno coronary artery diseaseandno cardiovascular disease. For prior tests, (ldl 129 trig 262).ROS as noted in the HPI Tiff Kitchen MD [address] [place] [address], [phone], [facility] 01/30/2025 08:52:57 text/html HyperlipidemiaReported by PatientHPIFor duration, patient reportschronic. [...] to dairy at all. Tiff Kitchen MD [address] [place] [address], [phone], [facility] 07/31/2025 09:18:16
--- OUTSIDE RECORDS SUMMARY | 2025-09-24 15:27 | XMS_ITS | Continuity of Care Document ---
Author Organization ALEKS Boggs [facility], L.LLaurentCLaurent, [facility] ([facility]) Address [address] [place] [address] Care Team Providers Care Agricultural Science Professor Name Role Phone TIFF KITCHEN Primary Care Provider [phone] Assessment No assessment recorded. Plan of Treatment Reminders Order Date Submit Date Provider Last Modified By Organization Details Last Modified Time Details Appointments None recorded. Lab alpha-gal ige, serum 2024 025 [employer] [facility], [facility], [address], [place], [address], 16:57:53 LDL, direct, serum 2024 025 ROBERT [facility], [facility] [address], [address], [place], [address], 16:57:55 PSA, serum or plasma 2024 025 elamb [facility], [address] [place] [address] Taniya Boyce, [address], [place], [address], 5 12:05:27 hemoglobin A1C/hemoglo bin total, QN, blood 2024 025 [facility], [address], [address], [place], [address], 5 10:08:08 CMP, serum or plasma 2024 025 ROBERT [facility], [address], [address], [place], [address], 10:29:03 CBC 2024 025 ROBERT [facility], [address], [address], [place], [address], 09:55:01 triglycerid es, serum 2024 025 [facility] ([facility]), [address] [place], [address], 10:23:01 Referral None recorded. Procedures None recorded. Surgeries None recorded. Imaging None recorded. Medication Orders None recorded. Patient TargetsNo targets recorded. Patient InstructionsNo instructions recorded. Reason for Referral None Reported. Results Created Date Observation Date Name Description Value Unit Range Abnormal Flag Note LastModifiedBy Organization Detail LastModifiedTime 07/20/2007/20/2025 CBC WBC 5.7 x10 4.5-10 .5 Not Available [facility] [address], [place], [address], 07/20/2025 09:55:00 07/20/2007/20/2025 CBC RBC 4.89 x10 4.30-5 .90 Not Available [facility] [address], [place], [address], 07/20/2025 09:55:00 07/20/2007/20/2025 CBC HGB 14.5 g/dL 13.5-1 8.0 Not Available [facility] [address], [place], [address], 07/20/2025 09:55:00 07/20/2007/20/2025 CBC HCT 44.9 % 35.0-6 0.0 Not Available [facility] [address], [place], [address], 07/20/2025 09:55:00 07/20/2007/20/2025 CBC MCV 91.8 fL 80.0-9 9.9 Not Available [facility] [address] [facility] [address] [address], [place], [address], 07/20/2025 09:55:00 07/20/2007/20/2025 CBC MCH 29.7 pg 27.0-3 2.0 Not Available [facility] [address] [facility] [address] [address], [place], [address], 07/20/2025 09:55:00 07/20/2007/20/2025 CBC MCHC 32.3 g/dL 32.0-3 6.0 Not Available [facility] [address] [facility] [address] [address], [place], [address], 07/20/2025 09:55:00 07/20/2007/20/2025 CBC RDW 13.8 % 11.5-1 4.5 Not Available [facility] [address] [facility] [address] [address], [place], [address], 07/20/2025 09:55:00 07/20/2007/20/2025 CBC plt 181.0 x10 150.0- 451.0 Not Available [facility] [address] [facility] [address], [place], [address], 07/20/2025 09:55:00 07/20/2007/20/2025 CBC lymphocytes % 31.9 % 20.0-5 0.0 Not Available [facility] [address] [facility] [address], [place], [address], 07/20/2025 09:55:00 07/20/2007/20/2025 CBC granulcytes % 54.7 % 30.0-7 0.0 Not Available [facility] [address], [place], [address], 07/20/2025 09:55:00 07/20/2007/20/2025 CBC monocytes % 9.1 % 2.0-16 .0 Not Available [facility] [address] [address], [place], [address], 07/20/2025 09:55:00 07/20/2007/20/2025 CBC granulcytes# 3.1 x10 Not Lisa ilable [facility] [address] [facility], [place], [address], 07/20/2025 09:55:00 07/20/2007/20/2025 CBC lymphocytes # 1.8 x10 Not Available [facility] [address] [address], [place], [address], 07/20/2025 09:55:00 07/20/2007/20/2025 CBC monocytes # 0.5 x10 Not Avai lable [facility] [address] [address], [place], [address], 07/20/2025 09:55:00 07/20/2007/20/2025 HBA1C hemaglobin A1C 5.4 4.2-6. 5 Not Available [facility] [address] [address], [place], [address], 07/20/2025 10:08:08 07/20/2007/20/2025 CMP (MALE ) glucose 113.0 mg/dL 60.0-9 9.0 high Not Available [facility] [address] [address], [place], [address], 07/20/2025 10:29:03 07/20/2007/20/2025 CMP (MALE ) BUN (blood urea nitrogen) 15.0 mg/dL 10.0-2 6.0 Not Available [facility] [address], [place], [address], 07/20/2025 10:29:03 07/20/20 25 07/20/2025 CMP (MALE ) creatinine (serum) 0.9 mg/dL 0.4-1. 5 Not Available [facility] [address] [facility], [place], [address], 07/20/2025 10:29:03 07/20/2007/20/2025 CMP (MALE ) BUN/creatini ne ratio 16.67 ratio Not Available [facility] [address] [facility], [place], [address], 07/20/2025 10:29:03 07/20/20 25 07/20/2025 CMP (MALE ) eGFR calculated 88.2 Not Available [facility] [address] [facility], [place], [address], 07/20/2025 10:29:03 07/20/20 25 07/20/2025 CMP (MALE ) total protein 7.3 g/dL 6.0-8. 5 Not Available [facility] [address] [facility] 1, [place], [address], 07/20/2025 10:29:03 07/20/20 25 07/20/2025 CMP (MALE ) total bilirubin 1.3 mg/dL 0.2-1. 3 Not Available [facility] [address] [facility], [place], [address], 07/20/2025 10:29:03 07/20/20 25 07/20/2025 CMP (MALE ) albumin 4.2 g/dL 3.5-5. 5 Not Available [facility] [address] [facility] [address] [address], [place], [address], 07/20/2025 10:29:03 07/20/20 25 07/20/2025 CMP (MALE ) globulin 3.1 calc Not Available [facility] [address] [facility] [address], [place], [address], 07/20/2025 10:29:03 07/20/20 25 07/20/2025 CMP (MALE ) AST (SGOT) 30.0 U/L 0.0-46 .0 Not Available [facility] [address] [facility] [address] [address], [place], [address], 07/20/2025 10:29:03 07/20/20 25 07/20/2025 CMP (MALE ) altv (SGPT) 20.0 U/L 13.0-6 9.0 normal Not Available [facility] [address] [facility] [address] [address], [place], [address], 07/20/2025 10:29:03 07/20/20 25 07/20/2025 CMP (MALE ) A/G ratio 1.4 ratio Not Available [facility] [address], [place], [address], 07/20/2025 10:29:03 07/20/20 25 07/20/2025 CMP (MALE ) ALP phos 76.0 U/L 30.0-1 40.0 normal Not Available [facility] [address] [facility] [address] [address], [place], [address], 07/20/2025 10:29:03 07/20/20 25 07/20/2025 CMP (MALE ) calcium 9.3 mg/dL 8.4-10 .5 Not Available [facility] [address] [facility] [address] [address], [place], [address], 07/20/2025 10:29:03 07/20/20 25 07/20/2025 CMP (MALE ) sodium 140.0 mmol/ L 136.0- 145.0 Not Available [facility] [address] [facility] 1, [place], [address], 07/20/2025 10:29:03 07/20/2007/20/2025 CMP (MALE ) potassium 4.3 mmol/ L 3.5-5. 1 Not Available [facility] [address] [facility] 1, [place], [address], 07/20/2025 10:29:03 07/20/2007/20/2025 CMP (MALE ) chloride 106.0 mmol/ L 98.0-1 10.0 normal Not Available [facility] [address] [facility] [address], [place], [address], 07/20/2025 10:29:03 07/20/2007/20/2025 CMP (MALE ) C02 28.0 mmol/ L 22.0-3 1.0 Not Available [facility] [address] [facility] [address], [place], [address], 07/20/2025 10:29:03 07/20/2007/20/2025 CMP (MALE ) anion gap 6.0 calc Not Available [facility] [address] [facility] [address], [place], [address], 07/20/2025 10:29:03 07/20/2007/20/2025 CMP (MALE ) osmolality 290.7 calc Not Available [facility] [address] [facility] [address], [place], [address], 07/20/2025 10:29:03 07/20/2007/23/2025 ALPHA GAL PANEL beef (F27) IgE 1.00 kU/L high Not Available [facility] [address] [place], [address], 07/23/2025 16:57:53 07/20/20 25 07/23/2025 ALPHA GAL PANEL class 2 Not Available [address], [address], 07/23/2025 16:57:53 07/20/20 25 07/23/2025 ALPHA GAL PANEL marquez (F88) IgE 0.34 kU/L high Not Available [address], [address], 07/23/2025 16:57:53 07/20/2007/23/2025 ALPHA GAL PANEL class 0/1 Not Available [address], [address], 07/23/2025 16:57:53 07/20/20 25 07/23/2025 ALPHA GAL PANEL pork (F26) IgE 0.12 kU/L high Not Available [address], [address], 07/23/2025 16:57:53 07/20/2007/23/2025 ALPHA GAL PANEL class 0/1 Not Available [address], [address], 07/23/2025 16:57:53 07/20/2007/23/2025 ALPHA GAL PANEL galactose [...] diagn ostic metho d. Addit ional infor viridiana hall can be found at http: //[email or web address] ia.co m Not Available [facility] [address] [place], [address], 07/23/2025 16:57:53 07/20/20 25 07/23/2025 INTER PRETA [...] for clini felton purpo ses. Not Available [facility] [address] [place], [address], 07/23/2025 16:57:54 07/20/20 25 07/23/2025 DIREC T LDL direct LDL 100 mg/dL <100 high Christine able range <100 mg/dL for prima ry preve ntion ; <70 mg/dL for patie nts with CHD or diabe tic patie nts with > or = 2 CHD risk facto rs. Not Available [facility] [address] , [place], [address], 07/23/2025 16:57:55 07/20/20 25 07/20/2025 trigl yceri tabby, serum Triglyceride s 226 Not Available [facility] ( [facility]) [address] [place] [address], [address], 07/20/2025 09:04:20 Result Notes None recorded. Problems Name Problem SNOMED Code Status Onset Date Resolution Date Notes Provider Name and Address Organization Details Recorded Time Blood in urine 24724513 Active 2022 Trace amounts of blood in urine for his whole life [facility], MichelleLJayda 4 15:21:27 Gastroeso phageal reflux disease 670297457 Active 2022 EZEQUIEL mg [facility], LLaurentLLaurentCLaurent 4 08:10:39 Migraine 54275920 Active 2022 Migraine Headache Sunshine mg [facility], LLaurentLLaurentCLaurent 4 15:21:35 Colonosco py Active 2022 Colonosco py; 12/10/09 @ [facility] by Dr. Lacy, needs repeat colonosco py 2021 Sunshine Pliler [facility] 4 15:21:31 Benign essential hypertens ion 8833987 Active 2022 EZEQUIELTHELMA LENTZ [facility] 4 08:10:15 Compressi on fracture of thoracic vertebra 203751157742 4 Active 2023 hx of EZEQUIEL LENTZ [facility], L.L.CLaurent 5 08:05:27 Anxiety 96039861 Active 2024 EZEQUIEL LENTZ [facility] 5 08:05:33 Hyperlipi demia 54908150 Active 2024 [facility] 5 08:05:19 Problem Notes None recorded. Procedures Surgical History Date Name Laterality Status Provider Name and Address Organization Details Recorded Time excision of spermatocele completed [facility], L.L.CLaurent 01/23/2024 09:19:01 vasectomy completed [facility] 01/23/2024 09:19:08 Imaging Results None recorded. Procedure Notes None recorded. Medical Equipment None Reported. Allergies Allergen ID Allergen Name Allergen Category Reaction Reaction Severity Criticality Documentation Date Start Date Code Code System Note Provider Name and Address Organization Details Recorded Time 02046 dexametha sone medicatio n other moderate low 06/02/20232020 3264 RxNorm React ion: Sever e Anxie ty Sunshine Summers [facility], L.L.CLaurent 4 12:33:12 59906 codeine medicatio n Not available Not available Not available 06/02/2023 2670 RxNorm Sunshinemartin Summers [facility], L.L.CLaurent 4 12:32:53 Medications Name Sig Start Date [...] Not Available Not Available Not Available Vitals None Recorded Social History Question Answer Notes LastModified by Organizat ion Details LastModified Time Tobacco Smoking Status Former Smoker EZEQUIEL LENTZ [facility] 01/23/2024 09:18:47 When Did You Quit Smoking? 16+yearssinc elastcigaret te [email or web address] Information not available 07/31/2025 What Was The Date Of Your Most Recent Tobacco Screening? 07/31/2025 [email or web address] Information not available 07/31/2025 What Is Your Current Pack Years? 10packyears [email or web address] Information not available 07/31/2025 Sex: Unknown Functional Status Question Answer Note LastModified by Organizat ion Details LastModified Time Do you use any illicit or recreational drugs? No [email or web address] Information not available 01/23/2024 Do you or have you ever used any other forms of tobacco or nicotine? No [email or web address] Information not available 01/23/2024 What is your level of alcohol consumption? Occasional [email or web address] Information not available 01/23/2024 Do you or have you ever used any nicotine-free cigarettes, vape, or chewing tobacco? No [email or web address] Information not available 07/31/2025 Mental Status None recorded. Family History Relationship Description Onset Age of this Age Resolved Age Notes LastModified by Organization Details LastModified Time Mother Malignant neoplasm of breast [email or web address] Not available 01/22 08:11:23 Maternal Grandmother Diabetes mellitus [email or web address] Not available 01/22 08:11:33 Father Aneurysm [email or web address] Not availab le 01/23/2024 08:11:44 Medical History No medical history recorded. Immunizations Vaccine Type Date Status Note Provider Nam e and Address Organization Details Recorded Time zoster live 0 completed Not Available [facility] 06/02/2023 02:51:00 Tdap 3 completed Not Available [facility] 06/02/2023 02:51:00 COVID-19, mRNA, LNP-S, PF, 30 mcg/0.3 mL dose 2 completed Not Available [facility] 06/02/2023 02:51:00 Influenza, split virus, trivalent, preservative 0 completed Not Available [facility] 06/02/2023 02:51:00 Influenza, split virus, trivalent, preservative 8 completed Not Available [facility] 06/02/2023 02:51:00 Tdap 7 completed Not Available [facility] 06/02/2023 02:51:00 COVID-19, mRNA, LNP-S, bivalent, PF, 50 mcg/0.5 mL or 25mcg/0.25 mL dose 3 completed EZEQUIEL mg, [facility] 01/23/2024 11:28:41 RSV, bivalent, protein subunit RSVpreF, diluent reconstituted, 0.5 mL, PF 3 completed EZEQUIEL mg, [facility] 01/23/2024 11:28:41 COVID-19, mRNA, LNP-S, PF, kyara-sucrose, 30 mcg/0.3 mL 3 [facility] 01/23/2024 11:28:41 COVID-19, mRNA, LNP-S, PF, 50 mcg/0.5 mL 4 completed EZQEUIEL mg, [facility] 03/26/2024 12:22:40 COVID-19, mRNA, LNP-S, PF, 50 mcg/0.5 mL 4 completed [facility] 01/30/2025 08:04:41 Influenza, high-dose, trivalent, PF 4 completed [facility] 01/30/2025 08:04:41 Influenza, adjuvanted, quadrivalent, PF 2 completed [facility] 03/31/2023 09:22:40 COVID-19, mRNA, LNP-S, PF, 100 mcg/0.5mL dose or 50 mcg/0.25mL dose 1 completed [facility] 03/31/2023 09:22:40 COVID-19, mRNA, LNP-S, PF, 100 mcg/0.5mL dose or 50 mcg/0.25mL dose 1 [facility] 03/31/2023 09:22:40 COVID-19, mRNA, LNP-S, PF, 100 mcg/0.5mL dose or 50 mcg/0.25mL dose 1 [facility] 03/31/2023 09:22:40 COVID-19, mRNA, LNP-S, PF, 30 mcg/0.3 mL dose, kyara-sucrose 2 completed [facility] RAFAELA [facility] 03/31/2023 09:22:40 COVID-19, mRNA, LNP-S, bivalent, PF, 50 mcg/0.5 mL or 25mcg/0.25 mL dose 2 completed [facility] 03/31/2023 09:22:40 Past Encounters Encounter ID Performer Location Encounter Start Date Encounter Closed Date Diagnosis/Indication Diagnosis SNOMED-CT Code Diagnosis ICD10 Code Diagnosis IMO Codes Diagnosis Note [id number] Tiff Kitchen MD [facility] ([facility]) [address] [place] [phone] 07/20/2025 08:57:38 07/21/2025 10:08:30 Chronic diarrhea 585623206 K52.9 35043 Health Concerns Section Related Observation LastModified by Organization Detai ls LastModified Time None Recorded Concern Status LastModified by Organization Details LastModified Time None Recorded Payers Encounter Date Sequence Insurance Name Policy Number Policy Leyva Covered Member ID Leyva Member ID Guarantor Name 07/20/2025 1 MEDICARE [place]: [place] Nathaniel Lainez [id number] Nathaniel Lainez 07/20/2025 2 BLUE CROSS-CA: SENIOR CLASSIC F (MEDICARE SUPPLEMENT) [id number] Nathaniel Lainez [id number] Nathaniel Lainez
[2025-09-24] MEDS: heparin 5,000 unit/mL INJ 1 mL 5000 UNIT SUBCUT (15:29)
[2025-09-24] MEDS: pantoprazole 40 mg SDV IVP (15:29)
--- NOTE | 2025-09-24 16:42 | PM.CONSULT ---
Providers/Reason For Consult Consulting Physician/Specialty*: Hospitalist Reason for Consult*: Left intertrochanteric hip fracture. Attending Physician: Levon Theodore MD Primary Care Provider: Hussain Kitchen MD History of Present Illness History of Present Illness Nathaniel Lainez is a 75 year old male he is on a ladder in his barn fell roughly 5 to 6 feet onto concrete onto his left hip. States he has severe left hip pain he rates a 10 out of 10. He denies any other injuries from his fall denies hitting his head denies any loss of consciousness. Pain is much worse with movement not able to bear weight Review of Systems Const: Denies: fever(s), chills, body aches or fatigue Eyes: Denies: change in vision ENMT: Reports: throat pain, hoarseness, nasal congestion and sinus pain Resp: Denies: dyspnea, productive cough or non-productive cough GI: Denies: nausea or vomiting Neuro: Denies: headache(s) Medications/Allergies Home Medications ?Medication ?Instructions ?Recorded ?Confirmed ?Last Taken ?Type fexofenadine 180 mg tablet 180 mg PO DAILY@1000 07/02/20 09/24/25 09/24/25 History ([place] Allergy) omeprazole 20 mg capsule,delayed 20 mg PO DAILY@1000 07/02/20 09/24/25 09/24/25 History release ibuprofen 200 mg tablet (Advil) 200 - 400 mg PO Q6H PRN Pain 12/06/20 09/24/25 Unknown History famotidine 20 mg tablet (Pepcid AC) 20 mg PO BID 09/24/25 09/24/25 09/24/25 History irbesartan 150 mg tablet 150 mg PO DAILY 09/24/25 09/24/25 09/24/25 History metoprolol tartrate 50 mg tablet 75 mg PO BID 09/24/25 09/24/25 09/24/25 History paroxetine HCl 20 mg tablet 20 mg PO DAILY 09/24/25 09/24/25 09/24/25 History simvastatin 10 mg tablet 10 mg PO DAILY 09/24/25 09/24/25 09/23/25 History Allergies Allergy/AdvReac Type Severity Reaction Status Date / Time codeine Allergy unknown Verified 03/12/22 13:25 Current Medications Generic Name Dose Route Start Last Admin Trade Name Freq PRN Reason Stop Dose Admin Heparin Sodium (Porcine) 5,000 unit 09/24/25 14:45 09/24/25 15:29 Heparin 5,000 Unit/Ml Inj 1 Ml SUBCUT 5,000 unit Q12H DEBORAH Administration Ondansetron HCl 4 mg 09/24/25 14:39 09/24/25 15:30 Ondansetron 2 Mg/Ml Sdv 2 Ml IVP 4 mg Q8H PRN Administration vomiting, or N/V if npo Pantoprazole Sodium 40 mg 09/24/25 14:45 09/24/25 15:29 Pantoprazole 40 Mg Sdv IVP 40 mg Q24H DEBORAH Administration PFSH Acute PFSH: Medical History (Updated 09/24/25 @ 12:56 by Ricardo Frances MD) Hx of supraventricular tachycardia History of hypertension Social History Smoking and tobacco/nicotine status: former use of tobacco/nicotine Vitals/I&O/Wt Last Vital Signs Temp 97.4 F L 09/24/25 16:29 Pulse 66 09/24/25 16:29 Resp 16 09/24/25 16:29 BP 153/86 09/24/25 16:29 Pulse Ox 93 09/24/25 16:29 O2 Del Method Room Air 09/24/25 16:29 Weight last 48 hrs Weight 185 lb Physical Exam Narrative: Alert and oriented x 3 Head is normocephalic atraumatic Respirations are intact No evidence of any rashes or infection 5/5 strength in bilateral upper and lower extremities Sensation intact in all extremities Data 09/24/25 11:45 09/24/25 11:45 A&P Assessment and plan 1. Closed fracture of left hip: Plan to do intramedullary hip nail tomorrow morning N.p.o. after midnight PDMP PDMP Reviewed: Not Reviewed Consult Attestations Medical Necessity Statement: Per primary service Coding Level of Care Code Acute Code for Chg Fwd Diagnoses Closed fracture of left hip S72.002A
--- NOTE | 2025-09-24 18:34 | PM.HP ---
Providers/Chief Complaint Admitting Physician: Levon Theodore MD Primary Care Provider: Hussain Kitchen MD Chief Complaint: fall History of Present Illness As per the patient and the previous notes: Nathaniel Lainez is a 75 year old male with PMH of HTN and on metoprolol, irbesartan, compliant to his medications, had a fall from the ladder and fell on his left side of the pelvis. later he was unable to bear his wt and came to the ER found to have left intertrochanteric fracture. he did not lose his consiousness or hit his head. no chest pain, chest pressure, or any dizziness or syncope. no focal neurological deficit, the patient is quite active in his daily life. rest of the review of the system is unremarkable. Review of Systems General: Reports: 10 or more systems reviewed and unremarkable except in HPI and below Medications/Allergies Home Medications ?Medication ?Instructions ?Recorded ?Confirmed ?Last Taken ?Type fexofenadine 180 mg tablet 180 mg PO DAILY@1000 07/02/20 09/24/25 09/24/25 History ([place] Allergy) omeprazole 20 mg capsule,delayed 20 mg PO DAILY@1000 07/02/20 09/24/25 09/24/25 History release ibuprofen 200 mg tablet (Advil) 200 - 400 mg PO Q6H PRN Pain 12/06/20 09/24/25 Unknown History famotidine 20 mg tablet (Pepcid AC) 20 mg PO BID 09/24/25 09/24/25 09/24/25 History irbesartan 150 mg tablet 150 mg PO DAILY 09/24/25 09/24/25 09/24/25 History metoprolol tartrate 50 mg tablet 75 mg PO BID 09/24/25 09/24/25 09/24/25 History paroxetine HCl 20 mg tablet 20 mg PO DAILY 09/24/25 09/24/25 09/24/25 History simvastatin 10 mg tablet 10 mg PO DAILY 09/24/25 09/24/25 09/23/25 History Allergies Allergy/AdvReac Type Severity Reaction Status Date / Time codeine Allergy unknown Verified 03/12/22 13:25 PFSH Acute PFSH: Medical History (Updated 09/24/25 @ 12:56 by Ricardo Frances MD) Hx of supraventricular tachycardia History of hypertension Social History Smoking and tobacco/nicotine status: former use of tobacco/nicotine Vitals/I&O/Wt Last Vital Signs Temp 97.4 F L 09/24/25 16:29 Pulse 66 09/24/25 16:29 Resp 16 09/24/25 16:29 BP 153/86 09/24/25 16:29 Pulse Ox 93 09/24/25 16:29 O2 Del Method Room Air 09/24/25 16:45 09/24/25 09/24/25 09/24/25 06:59 14:59 22:59 Intake Total 480 / 480 Balance 480 / 480 Weight last 48 hrs Weight 83.915 kg Weight 83.915 kg Physical Exam Narrative: General: Alert and oriented, lying comfortably without any distress HEENT: Normocephalic, atraumatic, grossly unremarkable exam Cardio: normal rate rhythm, normal S1-S2 without any murmurs, rubs, or gallops and JVD normal Respiratory: normal vascular breathing on auscultation without any wheezes, stridor, rhonchi GI: Abdomen soft, nontender, nondistended, normoactive bowel sounds present all 4 quadrants, Neuro: intact cranial nerves motor and sensory and cerebellar/coordination function without any focal neurological deficit Behavior: Appropriate and cooperative Extremities: Adequate palpable pulses, with limitation of his range of motion on left pelvis Data 09/24/25 11:45 09/24/25 11:45 A&P Assessment and plan 1. Closed fracture of left hip: Ortho onboard and to follow recommendations, Intramedullary hip nail tomorrow morning NPO from midnight hold Anti HTN adequate hydration to continue adequate analgesia as per pain scale rating OT/PT hemodynamic monitoring 2. History of hypertension: pt BP on the higher side, but most of the readings are in normal range, hold anti HTN since pt will be NPO from midnight adequate hydration monitor hemodynamics and control pain as it can also contribute to high BP PDMP PDMP Reviewed: Not Reviewed Attestations Medical Necessity Statement*: patient will stay as per discretion of the ortho team for left hip surgery for fracture and later OT/PT evaluation Time Spent in Patient Care: 16 - 35 minutes (>than 50% of time spent in counselling and/or direct pt care on unit). Other Attestations: Patient condition has been discussed at length with the patient/family, I have independently reviewed the chart labs imaging/diagnostics/EKG. the goals of care and code status with the patient/family/NOK/legal new accounts banking representative, and documented accordingly. The management has been done according to the current clinical condition with respect to patient goals of care and based on recommendations/guidelines. The patient/family has been informed about the current condition and further plan of care. Agreed with the plan of care and understood without any language barrier. Every effort was made to ensure accuracy of medical delivery driver. Any obvious errors or omissions should be clarified with the author of the document. Coding Level of Care Code Acute Code for Chg Fwd Diagnoses Closed fracture of left hip S72.002A History of hypertension Z86.79
[2025-09-24] MEDS: morphine 4 mg/mL SDV 1 mL 2 MG IVP (19:45)
[2025-09-24] MEDS: morphine 4 mg/mL SDV 1 mL IVP (23:33)
[2025-09-25] VITALS (16 sets, daily range): BP systolic 107–152; BP diastolic 62–84; PULSE 64–101; RESP 11–17; TEMP 36.4–37.1; O2SAT 91–97
[2025-09-25] MEDS: morphine 4 mg/mL SDV 1 mL IVP ×2 (02:35→05:21)
[2025-09-25] MEDS: heparin 5,000 unit/mL INJ 1 mL 5000 UNIT SUBCUT (02:36)
[2025-09-25 04:34] LABS: Hematocrit 37.1 % (37-53); Hemoglobin 12.40 g/dL (11.27-16.99); Mean Corpuscular HGB Conc 33.4 g/dL (30-55); Mean Corpuscular Hemoglobin 29.7 pg (27-33); Mean Corpuscular Volume 89.0 fl (82-101); Nucleated Red Blood Cells % 0 %; Platelet Count 146 10^3/cmm (157-399); Red Blood Count 4.17 10^6/uL (3.85-5.65); White Blood Count 8.80 10^3/uL (3.29-11.43)
[2025-09-25 04:46] LABS: INR 0.95 (0.8-1.2); Prothrombin Time 13.40 SECONDS (12.1-14.9)
[2025-09-25 04:47] LABS: Partial Thromboplastin Time 28.8 SECONDS (23.9-36.7)
[2025-09-25 04:51] LABS: Alanine Aminotransferase 16 U/L (0-41); Albumin Level 3.6 g/dL (3.5-5.2); Alkaline Phosphatase 65 U/L (40-130); Anion Gap 12.1 (5-19); Aspartate Amino Transferase 16 U/L (0-40); Blood Urea Nitrogen 11 mg/dL (8-23); Calcium 8.1 mg/dL (8.5-10.5); Carbon Dioxide 25 mmol/L (22-29); Chloride 103 mmol/L (98-107); Globulin 2.6 g/dL (1.3-4.6); Glucose 117 mg/dL (65-115); Osmolality Calculated 282 mOsm/kg (285-295); Potassium 4.1 mmol/L (3.5-5.1); Sodium 136 mmol/L (136-145); Total Protein 6.2 g/dL (6.6-8.7)
[2025-09-25] MEDS: ATORVASTATIN 20 MG TABLET PO (05:22)
--- NOTE | 2025-09-25 07:33 | P.PN_ITS ---
Subjective 2 Subjective: Patient is a very pleasant 75-year-old male seen and examined at bedside on hospital rounds this morning. Patient is laying in bed with continued left hip pain, awaiting orthopedic surgical intervention. Patient's vital signs are stable. Labs reviewed, mildly low platelet 146, very stable. Patient denies new or worsening symptoms. Spoke with patient about bowel regimen and especially when using opiates, he states that he hates to use pain medication and has gotten constipated before. Patient states that after surgery he would like to return home as he cares for his . We will await PT/OT evaluation in the postoperative period. Vitals/I&O/Wt Last Vital Signs Temp 98.3 F 09/25/25 04:00 Pulse 101 H 09/25/25 04:00 Resp 17 09/25/25 05:21 BP 124/77 09/25/25 04:00 Pulse Ox 93 09/25/25 04:00 O2 Del Method Room Air 09/25/25 04:00 09/24/25 09/25/25 09/25/25 22:59 06:59 14:59 Intake Total 480 / 480 867.5 / 1347.5 Output Total 600 / 600 Balance 480 / 480 267.5 / 747.5 Weight last 48 hrs Weight 84.907 kg Weight 83.915 kg Weight 83.915 kg Physical Exam 2 Narrative: General: Alert and oriented, lying comfortably without any distress HEENT: Normocephalic, atraumatic, grossly unremarkable exam Cardio: normal rate rhythm, normal S1-S2 without any murmurs, rubs, or gallops and JVD normal Respiratory: normal vascular breathing on auscultation without any wheezes, stridor, rhonchi GI: Abdomen soft, nontender, nondistended, normoactive bowel sounds present all 4 quadrants, Neuro: intact cranial nerves motor and sensory and cerebellar/coordination function without any focal neurological deficit Behavior: Appropriate and cooperative Extremities: Adequate palpable pulses, with limitation of his range of motion on left pelvis, outward rotation of left leg with tenderness to palpation left femur. Data 09/25/25 04:26 09/25/25 04:26 A&P Assessment and plan 1. Closed fracture of left hip: - Ortho onboard and to follow recommendations, Intramedullary hip nail later this morning - NPO - Multi-modal pain control - Encourage use of incentive spirometry post operatively - Bowel regimen - OT/PT - hemodynamic monitoring 2. History of hypertension: - Resume metoprolol - Monitor hemodynamics and control pain as it can also contribute to high BP 3. Hx of gastroesophageal reflux (GERD): - Continue PPI 4. Hx of hyperlipidemia: - Continue Lipitor Plan: 09/25/2025 Patient is n.p.o. awaiting orthopedic surgical interventions. Will have PT/OT evaluation and postoperative. Will continue to manage comorbidities with home dosing of medications. Patient would like to discharge home, will await PT/OT recommendations and coordinate with case management on discharge planning. PDMP PDMP Reviewed: Not Reviewed Attestations 2 Medical Necessity Statement*: Patient will stay as per discretion of the ortho team for left hip surgery for fracture and later OT/PT evaluation and continued medical management. Coding Level of Care Code 66677 Diagnoses Closed fracture of left hip S72.002A History of hypertension Z86.79 Hx of gastroesophageal reflux (GERD) Z87.19 Hx of hyperlipidemia Z86.39
--- NOTE | 2025-09-25 08:46 | W.PM.OPSUD ---
Surgery/Procedure H&P Update DATE OF PROCEDURE: September 25, 2025 DATE H&P PERFORMED: 09/24/25 H&P UPDATE INFORMATION: I have reviewed H&P completed within last 30 days, I have examined patient prior to procedure and No changes to prior documentation PLANNED PROCEDURE: Operation Date: 09/25/25 09:40 Proposed Procedures p Trochanteric Femoral Nail(Left) - Taqueria Wood DO
--- NOTE | 2025-09-25 08:58 | ANES.PREANE2 ---
Pre-Anesthetic Assessment Height/Weight: Height 1.83 m Weight 84.907 kg Temp Pulse Resp BP Pulse Ox O2 Del Method 98.3 F 101 H 17 124/77 93 Room Air 09/25/25 04:00 09/25/25 04:00 09/25/25 05:21 09/25/25 04:00 09/25/25 04:00 09/25/25 04:00 Operation Date: 09/25/25 09:40 Proposed Procedures p Trochanteric Femoral Nail(Left) - Taqueria Wood, DO Familial anesthetic complications: none Was Beta [place] taken within 24 hours: N/A Was Clonidine taken within 24 hours: N/A Last intake: > 8hrs Social No alcohol and No tobacco Exam alert, oriented x 3, clear to auscultation bilaterally and regular rate & rhythm Airway Mallampati: Class II Dentition: full CV/HEM Arrythmia (SVT) and Hypertension GI Gastroesophageal Reflux Disease Anesthetic Plan ASA status: 2 Anesthesia: General Risk of > 500 ml blood loss (7ml/kg in children): No Medications/Allergies Home Medications ?Medication ?Instructions ?Recorded ?Confirmed ?Last Taken ?Type fexofenadine 180 mg tablet 180 mg PO DAILY@1000 07/02/20 09/24/25 09/24/25 History ([place] Allergy) omeprazole 20 mg capsule,delayed 20 mg PO DAILY@1000 07/02/20 09/24/25 09/24/25 History release ibuprofen 200 mg tablet (Advil) 200 - 400 mg PO Q6H PRN Pain 12/06/20 09/24/25 Unknown History famotidine 20 mg tablet (Pepcid AC) 20 mg PO BID 09/24/25 09/24/25 09/24/25 History irbesartan 150 mg tablet 150 mg PO DAILY 09/24/25 09/24/25 09/24/25 History metoprolol tartrate 50 mg tablet 75 mg PO BID 09/24/25 09/24/25 09/24/25 History paroxetine HCl 20 mg tablet 20 mg PO DAILY 09/24/25 09/24/25 09/24/25 History simvastatin 10 mg tablet 10 mg PO DAILY 09/24/25 09/24/25 09/23/25 History Allergies Allergy/AdvReac Type Severity Reaction Status Date / Time codeine Allergy unknown Verified 03/12/22 13:25 Current Medications Generic Name Dose Route Start Last Admin Trade Name Freq PRN Reason Stop Dose Admin Atorvastatin Calcium 20 mg 09/25/25 05:00 09/25/25 05:22 Atorvastatin 20 Mg Tablet PO 20 mg DAILY DEBORAH Administration Heparin Sodium (Porcine) 5,000 unit 09/24/25 14:45 09/25/25 02:36 Heparin 5,000 Unit/Ml Inj 1 Ml SUBCUT 5,000 unit Q12H DEBORAH Administration Lactated Ringer's 1,000 mls @ 75 mls/hr 09/24/25 14:45 09/25/25 05:22 Lactated Ringers IV 75 mls/hr .[id number] DEBORAH Administration Methocarbamol 1,000 mg 09/24/25 20:21 09/25/25 03:16 Methocarbamol 500 Mg Tablet PO 1,000 mg Q6H PRN Administration MUSCLE SPASMS Morphine Sulfate 2 mg 09/24/25 14:39 09/24/25 19:45 Morphine 4 Mg/Ml Sdv 1 Ml IVP 2 mg Q4H PRN Administration SEVERE PAIN Morphine Sulfate 4 mg 09/25/25 02:28 09/25/25 05:21 Morphine 4 Mg/Ml Sdv 1 Ml IVP 4 mg Q2H PRN Administration SEVERE PAIN Ondansetron HCl 4 mg 09/24/25 14:39 09/24/25 15:30 Ondansetron 2 Mg/Ml Sdv 2 Ml IVP 4 mg Q8H PRN Administration vomiting, or N/V if npo Pantoprazole Sodium 40 mg 09/24/25 14:45 09/24/25 15:29 Pantoprazole 40 Mg Sdv IVP 40 mg Q24H DEBORAH Administration Paroxetine HCl 20 mg 09/24/25 21:00 09/24/25 21:32 Paroxetine 20 Mg Tablet PO 20 mg BEDTIME DEBORAH Administration Senna 17.2 mg 09/24/25 21:00 09/24/25 21:34 Sennosides 8.6 Mg Tablet PO 17.2 mg BEDTIME DEBORAH Administration PFSH Anesthesia Medical History (Updated 09/24/25 @ 12:56 by Ricardo Frances MD) Hx of supraventricular tachycardia History of hypertension Social History Smoking and tobacco/nicotine status: former use of tobacco/nicotine Data Anesthesia 09/25/25 04:26 09/25/25 04:26 Short CBC 09/24/25 09/25/25 Range/Units 11:45 04:26 WBC 7.65 8.80 (3.29-11.43) 10^3/uL Hgb 14.50 12.40 (11.27-16.99) g/dL Hct 44.3 37.1 (37-53) % MCV 90.6 89.0 (82-101) fl Plt Count 176 146 L (157-399) 10^3/cmm Neut % (Auto) 67.5 65.1 % Neut # (Auto) 5.16 5.73 (1.8-7.7) 10^3/uL BMP 09/24/25 09/25/25 11:45 04:26 Sodium 142 136 Potassium 4.3 4.1 Chloride 107 103 Carbon Dioxide 27 25 BUN 12 11 Creatinine 0.9 0.7 Glucose 120 H 117 H Calcium 8.8 8.1 L Liver Function 09/24/25 09/25/25 Range/Units 11:45 04:26 Total Bilirubin 0.6 0.9 (0.15-1.2) mg/dL AST 22 16 (0-40) U/L ALT 22 16 (0-41) U/L Alkaline Phosphatase 78 65 (40-130) U/L Albumin 4.2 3.6 (3.5-5.2) g/dL Coags 09/24/25 09/25/25 11:45 04:26 PT 12.70 13.40 INR 0.89 0.95 APTT 28.8 Cardiac Studies: Echocardiogram Ultrasound 03/29/21 Holter Monitor 02/16/20
--- NOTE | 2025-09-25 09:29 | PC.SOCIAL ---
IMM Update pg 2 of IMM Updated and reviewed w/ patient. Copy provided and copy dated, initialed and placed in chart.
[2025-09-25] MEDS: ceFAZolin 2,000 mg SDV 2000 MG IVP ×2 (09:36→16:58)
--- NOTE | 2025-09-25 10:42 | P.OP_ITS ---
Operative Report Date of procedure: September 25, 2025 Pre-op diagnosis: Left intertrochanteric hip fracture Post-op diagnosis: same Procedure done: Left intramedullary hip nail Surgeon: Taqueria Wood DO Estimated blood loss (mL): 5 Procedure: Left intramedullary hip nail Patient is brought to the operative suite. After undergoing anesthesia patient was placed on the fracture table. Patient's fracture was reduced. Patient was then prepped and draped normal sterile padded fashion. All areas impingement were well-padded. Skin incision was made proximal to the greater trochanter. The starting pin was inserted and tip the greater trochanter. Opening reamer was inserted. The gamma nail from [employer] [facility] was inserted. The guidewire was then passed up into the center center position of the femoral head. This is checked on both AP and lateral fluoroscopy. The wire was overdrilled. A size 105 mm screw was placed. Locking screw was placed proximal to this in the top of the gamma nail. And then a distal locking screw was placed as a 40 mm screw. AP and lateral fluoroscopy were taken fracture and hardware in good position. Wounds were irrigated and closed with Vicryl and Monocryl suture. Sterile dressings were applied and patient transferred to PACU in stable condition.
--- NOTE | 2025-09-25 10:50 | XR_ITS ---
WS: [id number] XR hip LT 2-3V wo/w pel* [id number] REASON FOR EXAM: OR PICS FINDINGS: Short intramedullary sandoval and large femoral neck nail fixation of intertrochanteric fracture. Surgical appliances are intact and in proper position and alignment. Fracture fragments are in good apposition and alignment. XR/XR hip LT 2-3V wo/w pel* [id number] IMPRESSION: Left hip fracture with internal fixation without abnormality.
--- NOTE | 2025-09-25 11:02 | PC.NURSE ---
Report called to Yessi Jordan pt states he is not hurting, oxygen drips to 89-90 o2 @NC on at 2 liters
--- NOTE | 2025-09-25 11:15 | ANE.PACU2 ---
Inpatient post-anesthesia follow up: Airway intact: Yes Vital signs: Temperature 98.2 F Pulse Rate 108 Respiratory Rate 18 Blood Pressure 134/79 Pulse Oximetry 92 Oxygen Delivery Me thod Room Air Oxygen Flow Rate 2 Fraction of Inspir ed Oxygen Hydration adequate: Yes Nausea and vomiting: No Pain level: 1 Mental status: Baseline
--- NOTE | 2025-09-25 11:22 | PC.NURSE ---
1120 BP 109/65 p-72 sat 95 bp 109/65 oxygen 2 liters on NS
[2025-09-25] MEDS: HYDROcodone-acetaminophen 5-325 mg Tablet PO ×2 (14:19→20:03)
[2025-09-26] MEDS: heparin 5,000 unit/mL INJ 1 mL 5000 UNIT SUBCUT (02:25)
[2025-09-26] MEDS: HYDROcodone-acetaminophen 5-325 mg Tablet PO ×3 (02:25→10:51)
[2025-09-26] MEDS: ceFAZolin 2,000 mg SDV 2000 MG IVP ×2 (02:26→09:10)
[2025-09-26 04:00] VITALS: BP 138/67; PULSE 68; RESP 17; TEMP 36.9; O2SAT 93
[2025-09-26] MEDS: ATORVASTATIN 20 MG TABLET PO (04:53)
[2025-09-26 07:51] VITALS: BP 134/79; PULSE 108; RESP 18; TEMP 36.8; O2SAT 92
--- NOTE | 2025-09-26 10:02 | PM.DCS ---
Discharge Providers Date of Admission: 09/24/25 14:17 Date of Discharge: September 26, 2025 Attending Provider at Admission: Levon Theodore MD Attending Provider at Discharge: Renetta Godfrey NP Primary Care Provider: Hussain Kitchen MD Diagnoses at Discharge Discharge Diagnosis 1. Closed fracture of left hip: 2. History of hypertension: 3. Hx of gastroesophageal reflux (GERD): 4. Hx of hyperlipidemia: Reason for Visit Reason for Visit: fall Brief History: Admission: Nathaniel Lainez is a 75 year old male with PMH of HTN and on metoprolol, irbesartan, compliant to his medications, had a fall from the ladder and fell on his left side of the pelvis. later he was unable to bear his wt and came to the ER found to have left intertrochanteric fracture. he did not lose his consiousness or hit his head. no chest pain, chest pressure, or any dizziness or syncope. no focal neurological deficit, the patient is quite active in his daily life. rest of the review of the system is unremarkable. Hospital Course Hospital Course 1. Closed fracture of left hip: - S/p left intramedullary hip nail with - Multi-modal pain control - Encourage use of incentive spirometry post operatively - Bowel regimen - OT/PT - recommendations home health 2. History of hypertension: - Continue metoprolol 3. Hx of gastroesophageal reflux (GERD): - Continue PPI 4. Hx of hyperlipidemia: - Continue Lipitor Patient did very well overall postoperatively, was able to work with physical therapy and walk with walker. Patient discharges home in stable condition to assume home health of choice, greatly appreciate case management in coordination with patient on discharge planning. Vital signs are stable, pain well-controlled. Discharge instructions and outpatient management per orthopedic surgeon . Patient advised to follow-up with primary care provider within 1 to 2 days of discharge and Dr[address] Gómez within 2 weeks of discharge. All questions and concerns addressed to the patient prior to discharge. Physical Exam Narrative: General: Alert and oriented, lying comfortably without any distress HEENT: Normocephalic, atraumatic, grossly unremarkable exam Cardio: normal rate rhythm, normal S1-S2 without any murmurs, rubs, or gallops and JVD normal Respiratory: normal vascular breathing on auscultation without any wheezes, stridor, rhonchi GI: Abdomen soft, nontender, nondistended, normoactive bowel sounds present all 4 quadrants, Neuro: intact cranial nerves motor and sensory and cerebellar/coordination function without any focal neurological deficit Behavior: Appropriate and cooperative Extremities: Adequate palpable pulses Skin: left hip with dressing, clean/dry Discharge Data Studies Completed and Pending Completed Studies During Hospitalization Category Date Time Status XR chest 1V portable [id number] Stat Exams 09/24/25 12:09 Completed XR hip LT 2-3V wo/w pel* [id number] Routine Exams 09/25/25 10:50 Completed XR hip LT 2-3V wo/w pel* [id number] Stat Exams 09/24/25 11:43 Completed XR pelvis 1-2V* [id number] Stat Exams 09/24/25 12:13 Completed Pending at discharge Category Date Time Status C-arm Fluoroscopy [id number] Routine Exams 09/25/25 09:48 Taken Radiology Impressions Chest X-Ray 09/24/25 12:09 IMPRESSION: No acute lung abnormality. Presumed chronic compression deformity of T9. Pelvis X-Ray 09/24/25 12:13 IMPRESSION: Left intertrochanteric fracture. Hip/Pelvis X-Ray 09/25/25 10:50 IMPRESSION: Left hip fracture with internal fixation without abnormality. Laboratory Results WBC 8.80 10^3/uL (3.29-11.43) 09/25/25 04:26 RBC 4.17 10^6/uL (3.85-5.65) 09/25/25 04:26 Hgb 12.40 g/dL (11.27-16.99) 09/25/25 04:26 Hct 37.1 % (37-53) 09/25/25 04:26 MCV 89.0 fl (82-101) 09/25/25 04:26 MCH 29.7 pg (27-33) 09/25/25 04:26 MCHC 33.4 g/dL (30-55) 09/25/25 04:26 RDW 13.0 % (12.1-15.1) 09/25/25 04:26 Plt Count 146 10^3/cmm (157-399) L 09/25/25 04:26 MPV 10.0 fL (7.4-10.4) 09/25/25 04:26 Neut % (Auto) 65.1 % 09/25/25 04:26 Lymph % (Auto) 23.1 % 09/25/25 04:26 [place] % (Auto) 9.1 % 09/25/25 04:26 Eos % (Auto) 2.0 % 09/25/25 04:26 Baso % (Auto) 0.5 % 09/25/25 04:26 Neut # (Auto) 5.73 10^3/uL (1.8-7.7) 09/25/25 04:26 Lymph # (Auto) 2.0 10^3/uL (0.8-4.8) 09/25/25 04:26 [place] # (Auto) 0.8 10^3/uL (0.2-0.9) 09/25/25 04:26 Eos # (Auto) 0.2 10^3/uL (0.0-0.8) 09/25/25 04:26 Baso # (Auto) 0.0 10^3/uL (0.0-0.1) 09/25/25 04:26 Nucleated RBC % (auto) 0 % 09/25/25 04:26 Nucleated RBCs # 0.0 /100WBC 09/25/25 04:26 PT 13.40 SECONDS (12.1-14.9) 09/25/25 04:26 INR 0.95 (0.8-1.2) 09/25/25 04:26 APTT 28.8 SECONDS (23.9-36.7) 09/25/25 04:26 Sodium 136 mmol/L (136-145) 09/25/25 04:26 Potassium 4.1 mmol/L (3.5-5.1) 09/25/25 04:26 Chloride 103 mmol/L (98-107) 09/25/25 04:26 Carbon Dioxide 25 mmol/L (22-29) 09/25/25 04:26 Anion Gap 12.1 (5-19) 09/25/25 04:26 BUN 11 mg/dL (8-23) 09/25/25 04:26 Creatinine 0.7 mg/dL (0.7-1.2) 09/25/25 04:26 GFR Calculation Not Reportable 09/25/25 04:26 Glucose 117 mg/dL (65-115) H 09/25/25 04:26 Calculated Osmolality 282 mOsm/kg (285-295) L 09/25/25 04:26 Calcium 8.1 mg/dL (8.5-10.5) L 09/25/25 04:26 Phosphorus 2.1 mg/dL (2.5-4.5) L 09/24/25 11:45 Magnesium 2.1 mg/dL (1.7-2.3) 09/24/25 11:45 Total Bilirubin 0.9 mg/dL (0.15-1.2) 09/25/25 04:26 AST 16 U/L (0-40) 09/25/25 04:26 ALT 16 U/L (0-41) 09/25/25 04:26 Alkaline Phosphatase 65 U/L (40-130) 09/25/25 04:26 Total Protein 6.2 g/dL (6.6-8.7) L 09/25/25 04:26 Albumin 3.6 g/dL (3.5-5.2) 09/25/25 04:26 Globulin 2.6 g/dL (1.3-4.6) 09/25/25 04:26 TSH 4.37 uIU/mL (0.27-4.20) H 09/24/25 11:45 Vitals Last Vital Signs Temp 98.2 F 09/26/25 07:51 Pulse 108 H 09/26/25 07:51 Resp 18 09/26/25 07:51 BP 134/79 09/26/25 07:51 Pulse Ox 92 09/26/25 07:51 O2 Del Method Room Air 09/26/25 07:51 O2 Flow Rate 2 09/25/25 11:08 Discharge Plan Discharge Patient Disposition: Home Health Service Condition: Stable Prescriptions: New sennosides [senna] 8.6 mg Tablet 17.2 mg PO BEDTIME Qty: 14 0RF hydrocodone-acetaminophen 5-325 mg tablet 1 - 2 tab PO .Q4-6H Qty: 40 0RF aspirin 81 mg tablet 81 mg PO DAILY 30 Days Qty: 30 0RF Continued fexofenadine [[place] Allergy] 180 mg tablet 180 mg PO DAILY@1000 omeprazole 20 mg capsule,delayed release(DR/EC) 20 mg PO DAILY@1000 ibuprofen [Advil] 200 mg Tablet 200 - 400 mg PO Q6H PRN (Reason: Pain) simvastatin 10 mg tablet 10 mg PO DAILY paroxetine HCl 20 mg tablet 20 mg PO DAILY metoprolol tartrate 50 mg tablet 75 mg PO BID irbesartan 150 mg tablet 150 mg PO DAILY famotidine [Pepcid AC] 20 mg 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 If you have not heard from them within the next 2 business days, please call them directly. Discharge Diet: Usual diet Discharge Activity: Limit activity as instructed Patient Instructions: Hydrocodone/Acetaminophen (By mouth), Aspirin (By mouth), Acute Wound Care (DC), Hip Fracture (GEN), Opioid Safety, Post Anesthesia Care, Patient Portal & [place] Instructions Activity Restrictions/Additional Instructions: You are being discharged from the hospital today during which time you have been under the care of Dr. Wood. You had a left intertrochanteric hip fracture. You were treated for this injury with left hip nail. You may resume you normal diet (including any special diets as directed by your primary doctor) as well as your home medications. You should follow up with you primary doctor if you have any questions regarding medication you took prior to your stay in the hospital. You may take your pain medication as prescribed. After the first few days, take your pain medication as needed. Do not drive or drink alcohol while taking your pain medication. Your injury may increase your risk of developing a blood clot,or DVT, in your arm or leg. This could potentially dislodge and travel to your lungs and become a life threatening condition called apulmonary embolus,or PE. You have been prescribed aspirin to be taken to prevent this. Frequent movement of the legs will also help prevent this from occurring. If you develop any new or worsening cough, chestpain, bloody sputum or shortness of breath, call 911 or go to the EmergencyRoom. Always keep your surgical incision/dressing clean and dry. If you experience increasing pain at your incision site, redness, swelling, increasing discharge, foul odors, or fevers (greater than 100.4), night sweats or chills you should call the office at the above number. If you feel this is an emergency you should be evaluated in the Emergency Department of a nearby hospital. Orthopedic Patient Instructions Summary: Weight Bearing: Weight-bear as tolerated Activity: As tolerated. Diet: Regular. Splint Care: Keep splint clean and dry. Cover with a plastic bag for bathing. Wound Care: Keep dressing clean and dry. Anticoagulation: Aspirin Pain Medication: Take only as needed. Ice, rest and elevation will be of great benefit. Please plan to follow-up [facility] Dr Wood in 2 weeks. You will need to call the clinic [phone] to schedule this visit. Thank you far allowing me to participate in your care. Do not hesitate to call the office with any questions or concerns. Discharge Attestations Time Spent in Discharge Care*: greater than 30 min Quality Metrics Clinical Quality Measures [ No reported AMI, CVA or VTE this stay] Coding Level of Care Code 02355 Diagnoses Closed fracture of left hip S72.002A History of hypertension Z86.79 Hx of gastroesophageal reflux (GERD) Z87.19 Hx of hyperlipidemia Z86.39
--- NOTE | 2025-09-26 12:31 | P.PN_ITS ---
Subjective 2 Subjective: Pain control patient sitting up at bedside Vitals/I&O/Wt Last Vital Signs Temp 98.2 F 09/26/25 07:51 Pulse 108 H 09/26/25 07:51 Resp 18 09/26/25 07:51 BP 134/79 09/26/25 07:51 Pulse Ox 92 09/26/25 07:51 O2 Del Method Room Air 09/26/25 07:51 O2 Flow Rate 2 09/25/25 11:08 09/25/25 09/26/25 09/26/25 22:59 06:59 14:59 Intake Total 2820 / 3300 2070 / 2070 Output Total 350 / 370 650 / 650 Balance 2820 / 3280 -350 / 2930 1420 / 1420 Weight last 48 hrs Weight 189 lb Weight 187 lb 3 oz Weight 185 lb Physical Exam 2 Narrative: Patient has been up ambulating sitting at bedside pain has improved since preop. Data 09/25/25 04:26 09/25/25 04:26 A&P Assessment and plan 1. Closed fracture of left hip: Postop day 1 left hip nail DC home today PDMP PDMP Reviewed: Last Reviewed 09/26/25 13:27 EST by Taqueria Wood DO Attestations 2 Medical Necessity Statement*: Per primary service Coding Level of Care Code Acute Code for Chg Fwd Diagnoses Closed fracture of left hip S72.002A
[2025-09-26 13:43] VITALS: BP 134/79; PULSE 108; RESP 18; TEMP 36.8; O2SAT 92
== END 2025-09-26 13:45 | disposition home health service (06) | DRG 482 ==
LOC: ER 13:26 → ER IP 14:17 → MEDSURG 15:33
PROVIDERS: Orthopaedic Surgery; Student in an Organized Health Care Education/Training Program; Admitting Provider Family Medicine; Emergency Provider Emergency Medicine; PCP Family Medicine; Visit Provider Registered Nurse
PROC: (CPT 27245; principal; 2025-09-25 09:30)
DX: S72.142A Displaced intertrochanteric fracture of left femur, initial encounter for closed fracture (principal); I10 Essential (primary) hypertension; K21.9 Gastro-esophageal reflux disease without esophagitis; E78.5 Hyperlipidemia, unspecified; Z79.82 Long term (current) use of aspirin; Z79.899 Other long term (current) drug therapy; Z88.5 Allergy status to narcotic agent; Z87.891 Personal history of nicotine dependence; W11.XXXA Fall on and from ladder, initial encounter
CPT/HCPCS: 36415; 71045; 72170; 73502; 76000; 80053; 83735; 84100; 84443; 85025; 85610; 85730; 93005; 96372; 96374; 96375; 96376; 97110; 97116; 97161; 97166; 97530; 99285; A4216; C1713; J0690; J1100; J1171; J1644; J2270; J2405; J2470; J2704; J3010; J7030; J7120; J9999

== ENCOUNTER → 2025-10-08 08:15 | Outpatient (BNVA) | payer MEDICARE, BC, SELFPAY | PROVIDERS: PCP Family Medicine; Visit Provider Orthopaedic Surgery | DX: Z98.890 Other specified postprocedural states (principal) | CPT/HCPCS: 73502; 99024 ==

== ENCOUNTER → 2025-11-03 08:51 | Outpatient (BNVA) | payer MEDICARE, BC, SELFPAY | PROVIDERS: PCP Family Medicine; Visit Provider Orthopaedic Surgery | DX: Z98.890 Other specified postprocedural states (principal) | CPT/HCPCS: 73502; 99024 ==